=== PATIENT | female | born 1960 | race Caucasian/White ===

== ENCOUNTER → 2020-09-10 11:40 | Outpatient (CLI) | payer OTHER, SELFPAY ==
--- NOTE | ~2020-09-10 | XR_ITS ---
XR knee RT min 4V DATE: 09/10/2020 12:16 INDICATION: Abrasion. Cellulitis. TECHNIQUE: 4 views COMPARISON: None FINDINGS: No fracture or dislocation or joint effusion. Joint spaces are well preserved. No radiopaqu e intra-articular loose body or chondrocalcinosis. IMPRESSION: Negative Reviewed, dictated and finalized at location A. IMPRESSION: Negative
== END ==
PROVIDERS: PCP Nurse Practitioner Psychiatric/Mental Health
DX: L03.115 Cellulitis of right lower limb (principal); S80.211A Abrasion, right knee, initial encounter
CPT/HCPCS: 73564

== ENCOUNTER 2023-10-07 09:52 | Outpatient (CLI) | payer MEDICARE, SELFPAY ==
--- NOTE | ~2023-10-07 | XR_ITS ---
Right Shoulder Technique: AP and axillary views were obtained. Clinical History: Pain Findings: No fracture or dislocation is seen. Osseous alignment is anatomic. The glenohumeral and acr omioclavicular joint spaces are preserved. Soft tissues are unremarkable. Impression: Unremarkable right shoulder radiographs. Reviewed, dictated and finalized at [facility]. Impression: Unremarkable right shoulder radiographs.
== END 2023-10-07 09:53 ==
PROVIDERS: PCP Registered Nurse; Visit Provider Internal Medicine Medical Oncology
DX: M25.511 Pain in right shoulder (principal)
CPT/HCPCS: 73030

== ENCOUNTER 2024-02-16 14:52 | Outpatient (CLI) | payer MEDICARE, SELFPAY ==
--- NOTE | ~2024-02-16 | MR_ITS ---
EXAMINATION: MR shoulder RT wo con DATE: 02/16/2024 15:38 INDICATION: R anterior shoulder pain . TECHNIQUE: Magnetic resonance imaging (MRI) of the right shoulder was performed without intravenous c ontrast. Sequences included axial PD-weighted FS FSE, coronal oblique PD-weighted FS FSE and T2-weigh tania FS FSE, and sagittal oblique T2-weighted FS FSE and T1-weighted FSE. COMPARISON: X-ray right shoulder 10/07/2023. FINDINGS: Coracoacromial arch: Moderate lateral downsloping of the type II acromion. Acromial tip enthesopathy. No significant infer ior AC joint osteophytosis. Borderline subacromial narrowing. Rotator cuff: Full-thickness supraspinatus tear measuring 9 x 6 mm and retraction of torn supraspinous fibers to th e 12:00 position. Distal infraspinatus tendinopathy. Partial tear of the subscapularis. Teres minor i ntact. Biceps tendon and glenoid labrum: Medial subluxation of the long head of biceps tendon. Small longitudinal type tear in the proximal lo ng head of biceps tendon near its insertion. Fraying and degenerative change of the glenoid labrum wi thout focal tear. Fluid: Small glenohumeral and subacromial subdeltoid fluid collections. Bones/cartilage: Bone marrow signal is benign and homogenous. Mild degenerative changes at the AC joint and glenohumer al joint IMPRESSION: 9 x 6 mm full-thickness supraspinatus tear with retraction of the torn fibers to the 12:00 position. Partial tear of the subscapularis. Medial subluxation of the long head of biceps tendon, with a longitudinal type tear proximally near t he biceps anchor. Small subacromial subdeltoid fluid collection. Small glenohumeral joint effusion. Reviewed, dictated and finalized at location K. IMPRESSION: 9 x 6 mm full-thickness supraspinatus tear with retraction of the torn fibers t o the 12:00 position. Partial tear of the subscapularis. Medial subluxation of the long head of biceps tendon, with a longitudinal type tear proximally near the biceps anchor. Small subacromial subdeltoid fluid collection. Small glenohumeral joint effusio n.
== END 2024-02-16 14:53 | disposition home or self-care (01) ==
PROVIDERS: PCP Registered Nurse; Visit Provider Internal Medicine Medical Oncology
DX: M75.101 Unspecified rotator cuff tear or rupture of right shoulder, not specified as traumatic (principal); S41.011A Laceration without foreign body of right shoulder, initial encounter; M25.411 Effusion, right shoulder
CPT/HCPCS: 73221

== ENCOUNTER 2024-06-22 13:26 | Outpatient (CLI) | payer MEDICARE, SELFPAY ==
--- NOTE | 2024-06-22 13:30 | ECG_ITS ---
Test Date: 2024-06-22 13:53:45 Measurements Intervals [place] Rate: 64 P: 43 NE: 183 QRS: -9 QRSD: 89 T: 69 QT: 403 QTc: 417 Interpretive Statements SINUS RHYTHM LEFT VENTRICULAR HYPERTROPHY AND ST-T CHANGE [VOLTAGE CRITERIA PLUS ST/T ABNORMALITY] WARNING: DATA QUALITY MAY AFFECT INTERPRETATION No previous ECG available for comparison Electronically Signed On 06-22-2024 14:48:57 INFORMATION SYSTEMS SUPERVISOR by Gasper Gill M.D.
--- OUTSIDE RECORDS SUMMARY | 2024-06-22 13:35 | XMS_ITS | Referral Summary ---
Author Organization [facility] Address [address] [address] Care Team Providers Care Fiscal Officer Name Role Phone Unavailable Primary Care Provider Unavailabl e Source Comments [facility],non-owned Affiliates and Associated Physician Practices is amultiple site organization consisting of ambulatory clinics and hospital sitesin [place], [place], [place] and [place]. This disclosure is being madepursuant to the Care Everywhere program and may not contain all information available regarding this patient. Last updated 18.[facility] [place] Allergies Active Allergy Reactions Criticality Noted Date Comments Codeine Nausea and/or Vomiting 06/25/2011 Morphine Rash Low 04/29/2014 Hydrocodone-Acetaminophen Nausea and/or Vomiting,Other,Dizziness 06/25/2011 Weakness Medications * Be aware that medications may not be up to date on this document. Alwaysverify current medications with the patient. Medication Sig Dispensed Refills Start Date End Date Status vitamin D, ergocalciferol, (DRISDOL) 96016 UNITS capsule Take 50,000 Units by mouth every 7 days Active vitamin D, cholecalciferol, 2000 UNITS tablet Take 2,000 Units by mouth once daily Active ibuprofen (MOTRIN) 600 MG tablet Take 600 mg by mouth every 6 hours as needed for Pain Active fexofenadine (JESSICA ALLERGY) 180 MG tablet Take 180 mg by mouth once daily Active clonazePAM (KLONOPIN) 0.5 MG tablet Take 0.5 mg by mouth 3 times daily as needed for Anxiety Active aspirin (ASPIRIN) 81 MG tablet Take 1 tablet by mouth once daily 100 tablet 4 03/30/2019 Active metoprolol succinate XL 24hr (TOPROL XL) 50 MG tablet Take 2 tablets by mouth once daily 30 tablet 5 11/29/2019 Active spironolactone (ALDACTONE) 25 MG tablet Take 1 tablet by mouth once daily 30 tablet 5 03/21/2020 Active Active Problems Problem Noted Date Diagnosed Date Aortic root dilation 09/28/2019 Hx of ascending aorta replacement 05/03/2018 Overview (05/03/2018): 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 Rare PACs/couplets/triplets (< 1%). Two runs of SVT, max rate 125 bpm, max duration only 6 beats. Rare isolated PVCs (< 1%). Rare symptoms of fluttering/racing correlate w/ sinus w/o ectopy. Event monitor 06/2018 (72 hr Bard) - Baseline sinus 64 bpm w/ range 46-88 bpm. No AFib or any other ectopy. Essential hypertension 02/19/2015 Overview (03/30/2019): Stress Echo 10/2012 -- Walked 4 min on [place] TM achieving 89% predicted HR for age, baseline EF 55%, EKG/echo neg Echo 04/2017 - nl chamber sizes, EF 55%, mild LV diastolic, ascending aorta not measurable, RVSP 23 mmHg Cath 04/2018 - angiographically normal coronaries, ascending aorta aneurysm, EF 60%, no signif AI Echo 03/2019 - aortic root 4.0 cm, ascending aorta (s/p repair) not well seen, EF 60% Malignant neoplasm of breast 06/15/2011 Overview (03/31/2018): Overview: Large T2 N0 5cm neg nodes Triple neg BRCA neg Resolved Problems Problem Noted Date Diagnosed Date Resolved Date Heart disease 10/30/2012 02/19/2015 Thoracic aortic aneurysm without rupture 10/23/2012 06/23/2018 Overview (04/25/2018): 09/2012 MRA -- Maximal diameter 4.6 cm in ascending aorta. Aortic root 4.3 cm. 07/2013 MRA -- max diameter 4.8 cm in ascending aorta, thought similar in size as 2012 study (due to slight change in test gating technique) 11/2013 CT angio -- max ascending aorta diameter 4.7 cm 03/2014 MRA -- max ascending aorta diameter 4.7 cm, no dissection 09/2014 CT angio -- max ascending aorta diameter 4.7 cm 08/2015 MRA -- max ascending aorta diameter 4.5 cm 03/2017 MRA - max ascending aorta diameter 5.0 cm 09/2017 MRA - max ascending aorta diameter 5.0 x 5.0 cm 03/2018 MRA - max ascending aorta diameter 5.2 cm Cath 04/2018 - normal coronaries, thoracic aortic aneurysm noted Social History Tobacco Use Types Packs/Day Years Used Date Smoking Tobacco: Never Smokeless Tobacco: Never Alcohol Use Standard Drinks/Week Comments No 0 (1 standard drink = 0.6 oz pur e alcohol) Sex and Gender Information Value Date Recorded Sex Assigned at Not on file Gender Identity Not on file Sexual Orientation Not on file Last Filed Vital Signs Vital Sign Reading Time Taken Comments Blood Pressure 122/82 09/28/2019 12:37 PM CDT Pulse 96 09/28/2019 12:37 PM CDT Temperature 36.9 ??C (98.5 ??F) 04/24/2018 7:04 AM CS T Respiratory Rate 18 04/24/2018 9:55 AM ACCOUNTING MANAGER ASSISTANT CONTROLLER Oxygen Saturation 97% 03/30/2019 1:54 PM ACCOUNTING MANAGER ASSISTANT CONTROLLER Inhaled Oxygen Concentration - - Weight 86.2 kg (190 lb) 09/28/2019 12:37 PM CDT Height 160 cm (5' 3 ) 09/28/2019 12:37 PM CDT Body Mass Index 33.66 09/28/2019 12:37 PM CDT Plan of Treatment Not on file Procedures Procedure Name Priority Date/Time Associated Diagnosis Comments BASIC METABOLIC PANEL (CALCIUM TOTAL) Routine 07/22/2017 3:02 PM ACCOUNTING MANAGER ASSISTANT CONTROLLER Thoracic aortic aneurysm without rupture (HCC) Essential hypertension Morbid obesity (HCC) Stress at work from Last 3 Months or Most Recently Relevant to Health Maintenance Results * (ABNORMAL) BASIC METABOLIC PANEL (BMP) (07/22/2017 3:02 PM ACCOUNTING MANAGER ASSISTANT CONTROLLER) Glucose 101(H) 65 - 99 mg/dL [facility] INSURANCE BILL BUN 12 6 - 24 mg/dL [facility] INSURANCE BILL Creatinine 0.75 0.57 - 1.00 mg/dL [facility] INSURANCE BILL eGFR by MDRD 91 >59 mL/min/1.7 3 [facility] INSURANCE BILL eGFR by MDRD 105 >59 mL/min/1.7 3 [facility] INSURANCE BILL BUN/Creatinine Ratio 16 9 - 23 [facility] INSURANCE BILL Sodium 140 134 - 144 mmol/L [facility] INSURANCE BILL Potassium 4.3 3.5 - 5.2 mmol/L [facility] INSURANCE BILL Chloride 99 96 - 106 mmol/L [facility] INSURANCE BILL CO2 24 18 - 29 mmol/L [facility] INSURANCE BILL Calcium 9.7 8.7 - 10.2 mg/dL [facility] INSURANCE BILL Blood BLOOD SPECIMEN / Unknown 07/22/2017 3:02 PM ACCOUNTING MANAGER ASSISTANT CONTROLLER 07/22/2017 Narrative [facility] INSURANCE BILL - 07/23/2017 7:15 AM ACCOUNTING MANAGER ASSISTANT CONTROLLER A courtesy copy of this report has been sent to [place] [facility]. Resulting Agency Comment [facility] [address] ??[facility] [id number] Vu Castaneda MD LAB - CHEMISTRY CELSO VAUGHN [facility] INSURANCE BILL [address] [place] [address] from Last 3 Months or Most Recently Relevant to Health Maintenance
--- OUTSIDE RECORDS SUMMARY | 2024-06-22 13:35 | XMS_ITS | Clinical Summary ---
Author Organization [facility] [place] Address [address] [place] [address] Phone Care Team Providers Care Legal Compliance Officer Name Role Phone Unavailable Primary Care Provider Unavailabl e Allergies Active Allergy Reactions Criticality Noted Date Comments Cefazolin Rash Low 05/30/2020 Clindamycin Itching Low 08/15/2020 Codeine Nausea and Vomiting Low 06/25/2011 Hydrocodone-Acetaminoph en Nausea and Vomiting,Dizziness,W eakness Low 06/25/2011 Morphine Rash Low 04/29/2014 Triple Antibiotic (Colistimth) Other (See Comments) 12/12/2020 Neosporin triple ABX ointment, caused severe skin reaction Medications fexofenadine (JESSICA) 180 mg tablet Take 180 mg by mouth daily . Active cholecalciferol , Vitamin D3, 50 mcg (2,000 unit) Tablet Take 1 Tab by mouth daily. Active benzonatate (TESSALON) 100 mg capsule TAKE 1 CAPSULE(100 MG) BY MOUTH THREE TIMES DAILY NEEDED FOR COUGH 30 Capsule 05/08/2018 Active spironolactone (ALDACTONE) 25 mg tablet Take 25 mg by mouth daily. Active ibuprofen (MOTRIN) 200 mg tablet Take 200 mg by mouth every 6 hours as needed for Pain, Mild. Active aspirin (ECOTRIN EC) 81 mg Tablet, Delayed Release (E.C.) Take 81 mg by mouth daily. Active metoprolol succinate (TOPROL XL) 50 mg Extended Release 24 hour tablet Take 50 mg by mouth daily. Active escitalopram oxalate (LEXAPRO) 10 mg tablet Take 10 mg by mouth daily. 01/02/2022 Active ergocalciferol (VITAMIN D2) 50,000 unit capsule Take 1 Capsule (50,000 Units) by mouth every 7 days. 12 Capsule 3 01/13/2022 Active clotrimazole-be tamethasone (LOTRISONE) 1-0.05 % Cream Apply to affected area 2 times daily. 45 Gram 3 04/13/2023 Active buPROPion HCL (WELLBUTRIN XL) 150 mg Extended Release 24 hour tablet Take 150 mg by mouth daily. 03/07/2024 Active lidocaine (LIDODERM) 5 % Adhesive Patch, Medicated Apply 1 Patch to affected area every 24 hours. 5 Patch 4 04/10/2024 Active Active Problems Patient Care Coordination No te Formatting of this note migh t be different from the original. Primary Care: Stephani Tellez MD [place]: [place] [id number] [address] Other: Breast surgeon: Mckayla Minor Oncologist: Lorraine Shah onc: Lorraine Yanez Master Pilot - Dr. 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 Breast cancer 06/15/2011 Overview (07/14/2011): Large T2 N0 5cm neg nodes Triple neg BRCA neg Genetic testing 05/23/2011 Overview (06/25/2011): brca neg HTN (hypertension) Resolved Problems Problem Noted Date Diagnosed Date Resolved Date Lump or mass in breast 06/09/201103/31 Mitral valve disorder 2012 Encounters Date Type Department Care Team Description 06/20/2024 External Device Data STL ABSTRACTION Provider, Abstract 06/14/2024 External Device Data STL ABSTRACTION Provider, Abstract 06/05/2024 1:00 PM STONE RIGGER - 06/05/2024 11:59 PM STONE RIGGER Hospital Encounter [facility] [address] [place] [address] Lorraine Mendoza MD Showalter, Jennifer, Occupational Therapist Discharge Disposition: Home or Self Care 06/05/2024 External Device Data STL ABSTRACTION Provider, Abstract 05/22/2024 Orders Only [facility] [address] Lorraine Mendoza MD 05/21/2024 Telephone [facility] [address] Lorraine Mendoza MD Question 04/10/2024 11:00 AM STONE RIGGER Office Visit [facility] [address] Lorraine Mendoza MD Right anterior shoulder pain (Primary Dx); Morbid obesity with body mass index of 40.0-49.9 (CMS/HCC); 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, estrogen receptor negative (CMS/HCC); Elevated glucose from Last 3 Months Family History Medical History Relation Name Comments Cancer Father gallbladder Heart Attack Maternal Grandmother 40s Stroke Maternal Grandmother 40s Breast Cancer Mother Depression Mother Hypertension Mother Asthma Sister 2 Hypertension Sister 3 Ovarian Cancer Neg Hx Relation Name Status Comments Father Maternal Grandmother Mother Alive Sister 1 Alive Sister 2 Sister 3 Social History Tobacco Use Types Packs/Day Years Used Date Smoking Tobacco: Never Smokeless Tobacco: Never Tobacco Cessation:Counseling Given: Not Answered Comments:quit 30 years ago Alcohol Use Standard Drinks/Week Comments No 0 (1 standard drink = 0.6 oz pur e alcohol) Comments No Sex and Gender Information Value Date Recorded Sex Assigned at Not on file Legal Sex Female 6:07 AM STONE RIGGER Gender Identity Not on file Sexual Orientation Not on file Occupation Industry Job Start Date Job End Date Not on file Not on file Not on file Not on file Not on file Not on file Not on file Not on file Last Filed Vital Signs Vital Sign Reading Time Taken Comments Blood Pressure 124/68 04/10/2024 10:57 AM STONE RIGGER Pulse 63 04/10/2024 10:57 AM STONE RIGGER Temperature 36.5 ??C (97.7 ??F) 04/10/2024 10:[address] Respiratory Rate 16 04/10/2024 10:57 AM STONE RIGGER Oxygen Saturation 97% 04/10/2024 10:57 AM STONE RIGGER Inhaled Oxygen Concentration - - Weight 85.3 kg (188 lb) 04/10/2024 10:57 AM STONE RIGGER Height 160 cm (5' 3 ) 04/10/2024 10:57 AM STONE RIGGER Body Mass Index 33.3 04/10/2024 10:57 AM STONE RIGGER Plan of Treatment Upcoming Encounters Date Type Department Care Team (Late st Contact Info) Description 10/11/2024 11:00 AM CDT Office Visit [facility]-[address] [address] Lorraine Mendoza MD [address] [place] [address] Health Maintenance Due Date Last Done Comments DTAP/TDAP/TD VACCINES (1 - Tdap) 1981 FIT-DNA Q 3 years 11/28/2007 FIT/FOBT Q 1 year 11/28/2007 Flex Sig/CT Colonography Q 5 years 11/28/2007 BREAST CANCER SCREENING 06/09/2012 06/09/19 12, 06/08/2011, 09/28/2008 ZOSTER VACCINE (1 of 2) 2012 CERVICAL CANCER SCREENING 02/12/2018 02/12/2015, 04/2014 COLORECTAL SCREENING 05/02/2022 05/02/2012, 05/02/20 12 Colorectal Cancer Screening 05/02/2022 RSV VACCINE (60+ or ) (1 - Risk 60-74 years 1-dose series) 2022 INFLUENZA VACCINE (#1) 2023 Medicare Advant[place] ([place]) Preventative Visit/Annual Wellness Visit 05/23/2024 08/14/2021, 03/19/2016 Pre-Diabetes and Diabetes Screening 04/13/2026 04/13/2023, 04/21/2021, 11/28/2019, Additional history exists Medical Devices Implanted Type Area Lead Java [id number] Developer Device Identifier Shelf Expiration Date Model / Serial / Lot Port Pwrprt Mri 8fr [id number] [place] [facility] [place] Chest CR BARD- ACCESS SYS 01/25/2013 [id number] / / [id number] Procedures Procedure Name Priority Date/Time Associated Diagnosis Comments COMPREHENSIVE METABOLIC PANEL Stat 04/10/2024 11:44 AM STONE RIGGER 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, estrogen receptor negative (CMS/HCC) CBC WITH DIFFERENTIAL Stat 04/10/2024 11:44 AM STONE RIGGER 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, estrogen receptor negative (CMS/HCC) CANCER ANTIGEN 15-3 Routine 04/10/2024 1 1:44 AM STONE RIGGER 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, estrogen receptor negative (CMS/HCC) CEA Routine 04/10/2024 11:44 AM STONE RIGGER 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, estrogen receptor negative (CMS/HCC) LACTATE DEHYDROGENASE Routine 04/10/2024 11:44 AM STONE RIGGER 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, estrogen receptor negative (CMS/HCC) IMMUNOGLOBULINS IGG IGA IGM Routine 04/10/2024 11:44 AM STONE RIGGER 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, estrogen receptor negative (CMS/HCC) HEMOGLOBIN A1C Routine 04/13/2023 10:59 AM STONE RIGGER Elevated glucose CERV/VAG CYTO SCREEN PAP W/HPV Routine 02/12/2015 Routine gynecological examination MAMMO DIAGNOSTIC UNI LEFT W OR WO CAD Routine 06/09/2011 5:16 PM STONE RIGGER Breast mass Abnormal mammogram from Last 3 Months or Most Recently Relevant to Health Maintenance Results * CANCER ANTIGEN 15-3 (04/10/2024 11:44 AM STONE RIGGER) Pathologist [facility] CA 15-3 17 <32 U/mL [facility] Comment: This test was performed using the Siemens ([employer]) chemiluminescent method. Values obtained from different assay methods cannot be used interchangeably. CA 15-3 levels, regardless of value, should not be interpreted as absolute evidence of the presence or absence of disease. Test Performed at: [facility] [address] [place], [place] ??[phone] Lidia Hill MD Blood 04/10/2024 11:4 4 AM STONE RIGGER 04/10/2024 7:16 PM STONE RIGGER Lorraine Mendoza MD CHEMISTRY ORDERABLES Final Res ult [facility] [phone] [facility] [address] [place] [address] * (ABNORMAL) CBC WITH DIFFERENTIAL (04/10/2024 11:44 AM STONE RIGGER) Pathologist [facility] WBC 4.8 4.0 - 9.8 K/uL 04/10/2024 11:52 AM [facility] RBC 3.74(L) 3.90 - 4.90 M/uL 04/10/2024 11:52 AM [facility] HEMOGLOBIN 12.1 11.8 - 14.8 g/dL 04/10/2024 11:52 AM [facility] HEMATOCRIT 38.7 35.5 - 44.0 % 04/10/2024 11:52 AM [facility] MCV 103.5(H) 82.0 - 99.0 fL 04/10/2024 11:52 AM [facility] MCH 32.4 27.2 - 32.6 pg 04/10/2024 11:52 AM [facility] MCHC 31.3 30.0 - 37.0 g/dL 04/10/2024 11:52 AM [facility] RDW 13.8 11.5 - 14.5 % 04/10/2024 11:52 AM [facility] RDW-STDEV 51.7 37.0 - 54.0 fL 04/10/2024 11:52 AM [facility] PLATELETS 188 140 - 350 K/uL 04/10/2024 11:52 AM [facility] MPV 11.4 9.0 - 13.0 fL 04/10/2024 11:52 AM [facility] NEUTROPHILS 73(H) 45 - 70 % 04/10/2024 11:52 AM [facility] LYMPHOCYTES 15(L) 16 - 45 % 04/10/2024 11:52 AM [facility] MONOCYTES 10 3 - 13 % 04/10/2024 11:52 AM [facility] EOSINOPHILS 3 <7 % 04/10/2024 11:52 AM [facility] BASOPHILS 0 <3 % 04/10/2024 11:52 AM [facility] NEUTROPHIL ABSOLUTE 3.49 1.90 - 7.00 K/uL 04/10/2024 11:52 AM [facility] LYMPHOCYTE ABSOLUTE 0.70 0.70 - 4.50 K/uL 04/10/2024 11:52 AM [facility] MONOCYTE ABSOLUTE 0.49 0.10 - 1.30 K/uL 04/10/2024 11:52 AM [facility] EOSINOPHIL ABSOLUTE 0.12 <0.80 K/uL 04/10/2024 11:[address] [facility] BASOPHILS ABSOLUTE 0.01 <0.30 K/uL 04/10/2024 11:[address] [facility] Blood Venipuncture / Unknown 04/10/2024 11:44 AM STONE RIGGER 04/10/2024 11:44 [address] [facility] - 04/10/2024 11:52 AM STONE RIGGER Repeated and verified. Lorraine Mendoza MD HEMATOLOGY ORDERABLES Final Re sult Performing Organization Address City/[facility]/ZIP Co de Phone Number [facility] CLIA# [id number] [address] [place] [address] * (ABNORMAL) IMMUNOGLOBULINS IGG IGA IGM (04/10/2024 11:44 AM STONE RIGGER) Pathologist [facility] IGA 410(H) 70 - 320 mg/dL [facility] IGG 797 600 - 1540 mg/dL [facility] IGM 38(L) 50 - 300 mg/dL [facility] Comment: Test Performed at: [facility] [id number] [place] [address] ??[phone] Lidia Hill MD Blood 04/10/2024 11:4 4 AM STONE RIGGER 04/10/2024 7:16 PM STONE RIGGER Lorraine Mendoza MD CHEMISTRY ORDERABLES Final Res ult [facility] [phone] [facility] [address] [place] [address] * LACTATE DEHYDROGENASE (04/10/2024 11:44 AM STONE RIGGER) LD (LACTATE DEHYDROGENASE) 147 120 - 250 U/L [facility] Comment: Test Performed at: [facility] [address] [place], [place] ??[phone] Lidia Hill Blood 04/10/2024 11:4 4 AM STONE RIGGER 04/10/2024 7:16 PM STONE RIGGER Lorraine Mendoza MD CHEMISTRY ORDERABLES Final Res ult Performing Organization Address City/State/ZIP [facility] Phone Number [facility] [phone] [facility] [address] [place] [address] * CEA (04/10/2024 11:44 AM STONE RIGGER) Pathologist [facility] CEA <2.0 See Note: ng/mL [facility] Comment: Reference Range: Non-Smoker: <2.5 Smoker: ? <5.0 This test was performed using the Siemens chemiluminescent method. Values obtained from different assay methods cannot be used interchangeably. CEA levels, regardless of value, should not be interpreted as absolute evidence of the presence or absence of disease. Test Performed at: [facility] [address] [place] [address] ??[phone] Lidia Hill MD Blood 04/10/2024 11:4 4 AM STONE RIGGER 04/10/2024 7:16 PM STONE RIGGER Lorraine Mendoza MD CHEMISTRY ORDERABLES Final Res ult Performing Organization Address City/[facility] Phone Number [facility] [phone] [facility] [address] [place] [address] * (ABNORMAL) COMPREHENSIVE METABOLIC PANEL (04/10/2024 11:44 AM STONE RIGGER) Pathologist [facility] SODIUM 139 136 - 145 mmol/L 04/10/2024 12:10 PM STONE RIGGER [facility] POTASSIUM 4.2 3.5 - 5.1 mmol/L 04/10/2024 12:10 PM STONE RIGGER [facility] CHLORIDE 105 98 - 107 mmol/L 04/10/2024 12:10 PM STONE RIGGER [facility] CO2 24 22 - 29 mmol/L 04/10/2024 12:10 PM [facility] CALCIUM 9.2 8.6 - 10.2 mg/dL 04/10/2024 12:10 PM [facility] BUN 14 6 - 20 mg/dL 04/10/2024 12:10 PM [facility] CREATININE 0.88 0.50 - 0.90 mg/dL 04/10/2024 12:10 PM [facility] GLUCOSE 106(H) 74 - 99 mg/dL 04/10/2024 12:10 PM [facility] TOTAL PROTEIN 7.0 6.6 - 8.7 g/dL 04/10/2024 12:10 PM [facility] ALBUMIN 4.3 3.5 - 5.2 g/dL 04/10/2024 12:10 PM [facility] BILIRUBIN TOTAL 0.3 <1.2 mg/dL 12:10 PM [facility] ALKALINE PHOSPHATASE 66 40 - 129 U/L 04/10/2024 12:10 PM [facility] AST 16 <40 U/L 04/10/2024 12:10 PM [facility] ALT 17 4 - 41 U/L 04/10/2024 12:10 PM [facility] GFR >60 >=60 mL/min/1.7 3 sq meter 04/10/2024 12:10 PM [facility] Comment:eGFR calculated with 2020 CKD-EPI equation. Vegetarian diet, extremely high or low muscle mass, and may affect results. Cystatin C with Glomerular Filtration Rate is a suitable alternative for these patients. ANION GAP 10 8 - 16 mmol/L 04/10/2024 12:10 PM [facility] Blood Venipuncture / Unknown 04/10/2024 11:44 AM STONE RIGGER 04/10/2024 11:44 AM STONE RIGGER Lorraine Mendoza MD CHEMISTRY ORDERABLES Final Res ult Performing Organization Address [facility] Co de Phone Number [facility]ITAL[facility]# [id number] [address] [place] [address] * HEMOGLOBIN A1C (04/13/2023 10:59 AM STONE RIGGER) HEMOGLOBIN A1C 5.4 <5.7 % of total Hgb [facility] Comment: For the purpose of screening for the presence of diabetes: <5.7% ? Consistent with the absence of diabetes 5.7-6.4% ?Consistent with increased risk for diabetes ?(prediabetes) > or =6.5% ??Consistent with diabetes This assay result is consistent with a decreased risk of diabetes. Currently, no consensus exists regarding use of hemoglobin A1c for diagnosis of diabetes in children. According to [place] Diabetes Association (ADA) guidelines, hemoglobin A1c <7.0% represents optimal control in non- diabetic patients. Different metrics may apply to specific patient populations. Standards of Medical Care in Diabetes(ADA). ?? ESTIMATED AVERAGE GLUCOSE (MG/DL) 108 mg/dL [facility] ESTIMATED AVERAGE GLUCOSE (MMOL/L) 6.0 mmol/L [facility] Comment: Test Performed at: [facility] [address] [place], [place] ??[phone] Lidia Hill MD Blood 04/13/2023 10:5 9 AM STONE RIGGER 04/14/2023 5:34 AM STONE RIGGER Lorraine Mendoza MD CHEMISTRY ORDERABLES Final Res ult Performing Organization Address [facility] Co de Phone Number [facility] [phone] [facility] [address] [place] [address] * CERV/VAG CYTOPATH, THIN PREP MANAGER ARCHITECTURE AND HPV (CP) (02/12/2015) Endocervical us Pamela Jeong MD PATHOLOGY/CYTOLOGY ORD ERABLES Final Result EXTERNAL LAB * MAMMO DIGITAL DIAG UNI LEFT (06/09/2011 5:16 PM STONE RIGGER) Anatomical Region Laterality Modality Breast Left Mammography 06/09/2011 5:13 PM STONE RIGGER Impressions 06/14/2011 8:44 AM STONE RIGGER IMPRESSION: 1. Ultrasound guided cyst aspiration left breast 3:00. 2. Ultrasound-guided 10-gauge vacuum-assisted core needle biopsy left breast, 9:00, with tissue marker placement. Pathology pending. 3. Ultrasound-guided 10-gauge vacuum-assisted core needle biopsy left breast, 7:00, with tissue marker placement. Pathology pending. Narrative 06/14/2011 8:44 AM STONE RIGGER ADDENDUM: Patient is status post ultrasound guided biopsy of the left breast, 2 sites, and 06/09/2011. Pathology results are available. The results are: BREAST, LEFT, SITE #1 (9 O'CLOCK), CORE BIOPSY: ? - PAPILLARY CARCINOMA, HIGH-GRADE (SEE MICROSCOPIC). ? - DUCTAL CARCINOMA IN SITU, HIGH-GRADE. BREAST, LEFT, SITE #2 (7 O'CLOCK), CORE BIOPSY: ? - INVASIVE PAPILLARY CARCINOMA, WITH THE FOLLOWING FEATURES: ? 1. SIZE: 0.7 CM (INVASIVE COMPONENT). ? 2. MACO SCORE: 8 (HIGH-GRADE). ? 3. MARGINS: NOT APPLICABLE. ? 4. LYMPHVASCULAR INVASION: NOT IDENTIFIED. ? 5. STAGE: T1b (PROVISIONAL). This is a malignant concordant diagnosis for both sites. Surgical management is recommended. The findings and recommendations will be discussed with the patient by the office of Dr. Mckayla Minor. EXAM: ULTRASOUND-GUIDED CORE BIOPSY OF THE LEFT BREAST X2, TISSUE MARKER CLIP PLACEMENT, UNILATERAL DIGITAL MAMMOGRAM AND ULTRASOUND GUIDED CYST ASPIRATION. 06/09/11 HISTORY: Multiple left breast masses COMPARISON: Outside hospital mammograms and ultrasound from [place], [place] dated 06/08/2011. PROCEDURE AND FINDINGS: The procedures were discussed with the patient and informed consent was obtained. Preliminary ultrasound of the left breast demonstrates a 0.5 cm oval, parallel, anechoic mass at the 3:00 position of the right breast which appears to correspond with the hypoechoic lesion at the 3:00 position noted on prior outside hospital ultrasound. Additionally, between the 7:00 and 9:00 position of the breast, there are multiple irregular and oval heterogeneously hypoechoic solid masses. There are at least four discrete solid masses identified. The largest, at the 7:00 position measures 1.8 x 1.0 x 1.1 cm. At the 9:00 position, an oval solid hypoechoic mass measures 0.7 x 0.5 x 0.8 cm. PROCEDURE #1: ??ULTRASOUND-GUIDED CYST ASPIRATION LEFT BREAST, 3:00. After sterile preparation of the skin, 1% lidocaine was utilized for local anesthesia. Under ultrasound guidance, a 21 gauge needle was advanced into the 5 mm mass at the 3:00 position from a lateral approach. ??Less than 1 cc benign-appearing cyst fluid was obtained and the cyst completely decompressed. The fluid was discarded. There is no evidence of residual solid or cystic lesion post aspiration procedure. Hemostasis was achieved. A sterile bandage was applied. The patient tolerated the procedure well and there was no evidence of immediate complication. PROCEDURE #2: ??ULTRASOUND-GUIDED CORE NEEDLE BIOPSY, LEFT BREAST 9:00. After sterile preparation of the skin, 1% lidocaine was utilized for local anesthesia. ??A small skin addison was made. Under ultrasound guidance, and an inferior lateral approach, a 10 gauge vacuum assisted core biopsy needle was advanced through the mass at the 9:00 position. A total of 3 tissue cores were obtained. Under ultrasound guidance, a U shaped tissue marker clip was then placed at the biopsy site. The needle was withdrawn and compression applied to achieve hemostasis. PROCEDURE #3: ??ULTRASOUND-GUIDED CORE BIOPSY LEFT BREAST, 7:00 After sterile preparation of the skin, 1% lidocaine was utilized for local anesthesia. ??A small skin addison was made. Under ultrasound guidance, and a lateral approach, a 10 gauge vacuum assisted core biopsy needle was advanced through the mass at the 7:00 position. A total of 3 tissue cores were obtained. Under ultrasound guidance, a spiral shaped tissue marker clip was then placed at the biopsy site. The needle was withdrawn and compression applied to achieve hemostasis. A sterile bandage and an ice pack were applied to the biopsy sites. Postprocedure two-view left unilateral digital mammogram demonstrates the tissue markers at the appropriate positions. The patient tolerated the procedures well without immediate complication. The patient was given verbal as well as written postprocedural instructions prior to the release from the department. The tissue cores were submitted to surgical pathology in formalin for histologic analysis. Procedure Note Delma Lyons MD - 06/14/2011 ADDENDUM: Patient is status post ultrasound guided biopsy of the left breast, 2 sites, and 06/09/2011. Pathology results are available. The results are: BREAST, LEFT, SITE #1 (9 O'CLOCK), CORE BIOPSY: - PAPILLARY CARCINOMA, HIGH-GRADE (SEE MICROSCOPIC). - DUCTAL CARCINOMA IN SITU, HIGH-GRADE. BREAST, LEFT, SITE #2 (7 O'CLOCK), CORE BIOPSY: - INVASIVE PAPILLARY CARCINOMA, WITH THE FOLLOWING FEATURES: 1. SIZE: 0.7 CM (INVASIVE COMPONENT). 2. MACO SCORE: 8 (HIGH-GRADE). 3. MARGINS: NOT APPLICABLE. 4. LYMPHVASCULAR INVASION: NOT IDENTIFIED. 5. STAGE: T1b (PROVISIONAL). This is a malignant concordant diagnosis for both sites. Surgical management is recommended. The findings and recommendations will be discussed with the patient by the office of Dr. Mckayla Minor. EXAM: ULTRASOUND-GUIDED CORE BIOPSY OF THE LEFT BREAST X2, TISSUE MARKER CLIP PLACEMENT, UNILATERAL DIGITAL MAMMOGRAM AND ULTRASOUND GUIDED CYST ASPIRATION. 06/09/11 HISTORY: Multiple left breast masses COMPARISON: Outside hospital mammograms and ultrasound from [place], [place] dated 06/08/2011. PROCEDURE AND FINDINGS: The procedures were discussed with the patient and informed consent was obtained. Preliminary ultrasound of the left breast demonstrates a 0.5 cm oval, parallel, anechoic mass at the 3:00 position of the right breast which appears to correspond with the hypoechoic lesion at the 3:00 position noted on prior outside hospital ultrasound. Additionally, between the 7:00 and 9:00 position of the breast, there are multiple irregular and oval heterogeneously hypoechoic solid masses. There are at least four discrete solid masses identified. The largest, at the 7:00 position measures 1.8 x 1.0 x 1.1 cm. At the 9:00 position, an oval solid hypoechoic mass measures 0.7 x 0.5 x 0.8 cm. PROCEDURE #1: ULTRASOUND-GUIDED CYST ASPIRATION LEFT BREAST, 3:00. After sterile preparation of the skin, 1% lidocaine was utilized for local anesthesia. Under ultrasound guidance, a 21 gauge needle was advanced into the 5 mm mass at the 3:00 position from a lateral approach. Less than 1 cc benign-appearing cyst fluid was obtained and the cyst completely decompressed. The fluid was discarded. There is no evidence of residual solid or cystic lesion post aspiration procedure. Hemostasis was achieved. A sterile bandage was applied. The patient tolerated the procedure well and there was no evidence of immediate complication. PROCEDURE #2: ULTRASOUND-GUIDED CORE NEEDLE BIOPSY, LEFT BREAST 9:00. After sterile preparation of the skin, 1% lidocaine was utilized for local anesthesia. A small skin addison was made. Under ultrasound guidance, and an inferior lateral approach, a 10 gauge vacuum assisted core biopsy needle was advanced through the mass at the 9:00 position. A total of 3 tissue cores were obtained. Under ultrasound guidance, a U shaped tissue marker clip was then placed at the biopsy site. The needle was withdrawn and compression applied to achieve hemostasis. PROCEDURE #3: ULTRASOUND-GUIDED CORE BIOPSY LEFT BREAST, 7:00 After sterile preparation of the skin, 1% lidocaine was utilized for local anesthesia. A small skin addison was made. Under ultrasound guidance, and a lateral approach, a 10 gauge vacuum assisted core biopsy needle was advanced through the mass at the 7:00 position. A total of 3 tissue cores were obtained. Under ultrasound guidance, a spiral shaped tissue marker clip was then placed at the biopsy site. The needle was withdrawn and compression applied to achieve hemostasis. A sterile bandage and an ice pack were applied to the biopsy sites. Postprocedure two-view left unilateral digital mammogram demonstrates the tissue markers at the appropriate positions. The patient tolerated the procedures well without immediate complication. The patient was given verbal as well as written postprocedural instructions prior to the release from the department. The tissue cores were submitted to surgical pathology in formalin for histologic analysis. IMPRESSION IMPRESSION: 1. Ultrasound guided cyst aspiration left breast 3:00. 2. Ultrasound-guided 10-gauge vacuum-assisted core needle biopsy left breast, 9:00, with tissue marker placement. Pathology pending. 3. Ultrasound-guided 10-gauge vacuum-assisted core needle biopsy left breast, 7:00, with tissue marker placement. Pathology pending. us Mckayla Minor MD MAMMO ORDERABLES Final Result from Last 3 Months or Most Recently Relevant to Health Maintenance Insurance [facility] [id number] Advance Directives For more information, please contact: [phone] * Full Code (Latest Code Status on File) Date Activated Date Inactivated Comments 08/29/2014 11:38 PM 09/03/2014 1:12 AM * Full Code Date Activated Date Inactivated Comments 04/29/2014 5:14 PM 04/30/2014 6:18 PM * Full Code Date Activated Date Inactivated Comments 04/29/2014 1:58 PM 04/29/2014 5:14 PM * Full Code Date Activated Date Inactivated Comments 05/02/2012 10:45 AM 05/02/2012 3:41 PM * Full Code Date Activated Date Inactivated Comments 02/24/2012 10:57 AM 02/25/2012 12:27 PM
--- OUTSIDE RECORDS SUMMARY | 2024-06-22 13:35 | XMS_ITS ---
Author Organization [facility] [place] Address [address] [place] [address] Phone Care Team Providers Care Custodial Worker Name Role Phone Unavailable Primary Care Provider Unavailabl e Active Problems Patient Care Coordination No te Formatting of this note migh t be different from the original. Primary Care: Stephani Tellez MD Referring Provider: Stephani Tellez MD [id number] [place] [address] [address] [place] [address] Other: Breast surgeon: Mckayla Minor Oncologist: Lorraine Shah onc: Lorraine Yanez Food Production Machine Operator - Dr. Vu Castaneda Problem Noted Date [...] 05/23/2011 Overview (06/25/2011): brca neg HTN (hypertension) Current Treatment and Therapy Plans No current plan information found. Past Treatment and Therapy Plans No past plan information found. Lifetime Dose Tracking * Chemical Lifetime Dose Automatic Entry Manual Entr y doxorubicin 228.581 mg/m2 (432 mg) 228.581 mg/m2 (432 mg) 0 mg/m2 (0 mg) Effective Dose 31.9 mSv 31.9 mSv 0 mSv Total DLP 1,724 DLP 1,724 DLP 0 DLP CTDIvol Max 39 mGy 39 mGy 0 mGy CTDIvol Min 37.1 mGy 37.1 mGy 0 mGy Resolved Problems Problem Noted Date Diagnosed Date Resolved Date Lump or mass in breast 06/09/201103/31 Mitral valve disorder 2012
--- OUTSIDE RECORDS SUMMARY | 2024-06-22 13:35 | XMS_ITS | Encounter Summary ---
Author Organization [facility] Address [address] [place] [address] Care Team Providers Care Pastoral Worker Name Role Phone Cecelia Hurtado NP Primary Care Provider [phone] Tavon Camejo MD Unavailable [phone] Encounter Details Date Type Department Care Team (Late st Contact Info) Description 06/04/2020 Telephone [facility] - Imaging [address] [place] [address] Transcribed Order, Provider Social History Tobacco Use Types Packs/Day Years Used Date Smoking Tobacco: Never Smokeless Tobacco: Never Alcohol Use Standard Drinks/Week Comments Not Currently 0 (1 standard drink = 0.6 oz pur e alcohol) Comments No Sex and Gender Information Value Date Recorded Sex Assigned at Not on file Legal Sex Female 7:22 PM RADIO INTERFERENCE TROUBLE SHOOTER Gender Identity Not on file Sexual Orientation Not on file documented as of this encounter Plan of Treatment Not on file documented as of this encounter Visit Diagnoses Not on filedocumented in this encounter Care Teams Pastoral Worker Relationship Specialty Start [place] [address] [address] [id number] PCP - General Nurse Practitioner 02/16/21 [place] [address] [address] [id number] Wildlife Removal Specialist Cardiology 02/10/22 documented as of this encounter
--- OUTSIDE RECORDS SUMMARY | 2024-06-22 13:35 | XMS_ITS | Clinical Summary ---
Author Organization [facility] Address [address] [place] [address] Care Team Providers Care Fleet Administrator Name Role Phone Unavailable Primary Care Provider Unavailabl e Source Comments [facility] [employer],non-owned Affiliates and Associated Physician Practices is amultiple site organization consisting of ambulatory clinics and hospital sitesin [place], [place], [place] and [place]. This disclosure is being madepursuant to the Care Everywhere program and may not contain all information available regarding this patient. Last updated 18.[facility] [employer] Allergies Active Allergy Reactions Criticality Noted Date Comments Codeine Nausea and/or Vomiting 06/25/2011 Morphine Rash Low 04/29/2014 Hydrocodone-Acetaminophen Nausea and/or Vomiting,Other,Dizziness 06/25/2011 Weakness Medications * Be aware that medications may not be up to date on this document. Alwaysverify current medications with the patient. Medication Sig Dispensed Refills Start Date End Date Status vitamin D, ergocalciferol, (DRISDOL) 86121 UNITS capsule Take 50,000 Units by mouth [...] - normal coronaries, thoracic aortic aneurysm noted Family History Medical History Relation Name Comments Cancer Father gallbladder Stroke Maternal Grandmother in her 40s Breast Cancer after age 50 or unknown Mother Depression Mother Heart Disease Mother MVP Hypertension Mother Hypertension Sister 1 Asthma Sister 2 Heart Disease Sister 3 MVP Relation Name Status Comments Father Maternal Grandmother Mother Sister 1 Sister 2 Sister 3 Social History Tobacco [...] T Respiratory Rate 18 04/24/2018 9:55 AM HOSPITALITY RECRUITER Oxygen Saturation 97% 03/30/2019 1:54 PM HOSPITALITY RECRUITER Inhaled Oxygen Concentration - - Weight 86.2 kg (190 lb) 09/28/2019 12:37 PM CDT Height 160 cm (5' 3 ) 09/28/2019 12:37 PM CDT Body Mass Index 33.66 09/28/2019 12:37 PM CDT Plan of Treatment Health Maintenance Due Date Last Done Comments COLOGUARD (AGES 45-75) - COL ON CA SCREENING 1962 COLON MONITORING 1962 COLONOSCOPY - COLON CA SCREENING 1962 CT COLONOGRAPHY - COLON CA SCREENING 1962 Colorectal Cancer Screening 1962 FIT - COLON CA SCREENING 1962 FLEX SIG - COLON CA SCREENING 1962 LIPID TESTING 1962 MAMMOGRAM 1962 HIV SCREENING 1977 HEPATITIS C SCREENING 11/22/1980 DTAP/TDAP/TD VACCINES (1 - Tdap) 1981 PAP with HPV 1992 PNEUMOCOCCAL VACCINE 50+ (1 of 1 - PCV) 2012 ZOSTER VACCINE (1 of 2) 2012 SCREENING FOR DIABETES 07/22/2020 07/22/2017 COVID-19 VACCINE (1 - 2023-2 5 season) 2024 INFLUENZA VACCINE (#1) 2024 DEPRESSION SCREENING 05/23/2024 Respiratory Syncytial Virus (RSV) Vaccine Pt: or over 60 yrs (1 - 1-dose 75+ series) 2037 HEPATITIS B VACCINE Aged Out No longe r eligible based on patient's age to complete this topic HIB VACCINE Aged Out No longer eligi ble based on patient's age to complete this topic HPV VACCINE Aged Out No longer eligi ble based on patient's age to complete this topic MENINGOCOCCAL (Group B) VACCINE Aged Out No longer eligible based on patient's age to complete this topic MENINGOCOCCAL VACCINE Aged Out No morris christine eligible based on patient's age to complete this topic PNEUMOCOCCAL VACCINE Aged Out No long er eligible based on patient's age to complete this topic Procedures Procedure Name Priority Date/Time Associated Diagnosis Comments BASIC METABOLIC PANEL (CALCIUM TOTAL) Routine 07/22/2017 3:02 PM HOSPITALITY RECRUITER Thoracic aortic aneurysm without rupture (HCC) Essential hypertension Morbid obesity (HCC) Stress at work from Last 3 Months or Most Recently Relevant to Health Maintenance Results * (ABNORMAL) BASIC METABOLIC PANEL (BMP) (07/22/2017 3:02 PM HOSPITALITY RECRUITER) Glucose 101(H) 65 - 99 mg/dL [facility] [...] BLOOD SPECIMEN / Unknown 07/22/2017 3:02 PM HOSPITALITY RECRUITER 07/22/2017 Narrative [facility] INSURANCE BILL - 07/23/2017 7:15 AM HOSPITALITY RECRUITER A courtesy copy of this report has been sent to [place] [facility]. Resulting Agency Comment [facility] [address] [facility] ??[facility] [id number] Vu Castaneda MD LAB - CHEMISTRY CELSO VAUGHN [facility] INSURANCE BILL [address] [place] [address] from Last 3 Months or Most Recently Relevant to Health Maintenance Julisa Juarez Personal/Family Self 1960 [address] [id number]
--- OUTSIDE RECORDS SUMMARY | 2024-06-22 13:35 | XMS_ITS | Clinical Summary ---
Author Organization [facility] Address [address] [place] [address] Care Team Providers Care Cloth Tester Quality Name Role Phone Cecelia Hurtado NP Primary Care Provider [phone] Tavon Camejo MD Unavailable [phone] Allergies Active Allergy Reactions Criticality Noted Date Comments Cefazolin Flushing (skin),Redness Low 11/29/2018 Clindamycin Itching Low 08/15/2020 Codeine Nausea only Low 05/01/2018 Morphine Rash Medium 04/20/2018 Zddttqka-Yhpmdvbivw-Fanvauozh Blisters High [address] Rash Medium 12/12/2020 Hydrocodone-Acetaminophen Anxiety Low 04/20/2018 Medications ergocalciferol (VITAMIN D) 50,000 unit capsule TK 1 C PO Q 7 DAYS 1 03/09/2018 Active fexofenadine (JESSICA) 180 mg tablet Take 180 mg by mouth. Active cholecalciferol (VITAMIN D-3) 2,000 unit capsule 2,000 Units daily. Active spironolactone (ALDACTONE) 25 mg tablet Take 25 mg by mouth 10/31/2018 Active clonazePAM (KlonoPIN) 0.5 mg tablet Take 0.5 mg by mouth 2 (two) times a day as needed for anxiety Active aspirin 81 mg enteric coated tablet Take 81 mg by mouth daily Active escitalopram (LEXAPRO) 10 mg tablet Take 10 mg by mouth daily 12/12/2020 Active metoprolol XL (TOPROL-XL) 50 mg extended release tablet 02/13/2021 Acti ve cyanocobalamin, vitamin B-12, 5,000 mcg capsule Take by mouth daily Active green tea leaf extract (Green Tea) capsule Take 500 mg by mouth daily Active buPROPion XL (WELLBUTRIN XL) 150 mg 24 hr tablet Take 1 tablet (150 mg total) by mouth every morning 11/04/2022 Active Active Problems Problem Noted Date Diagnosed Date Current moderate episode of major depressive disorder without prior episode 08/22/2021 Generalized anxiety disorder 08/22/2021 Abnormality of aortic valve 12/21/2019 Assessment & Plan (06/27/2020 12:29 PM VIDEOGAME DESIGNER): On today's echocardiogram, her aortic valve appears to be tricuspid and there is no stenosis or insufficiency. Assessment & Plan (12/21/2019 4:48 PM CDT): Unclear from notes if she does have a bicuspid aortic valve. Echocardiogram of 04/09/2019 apparently did not show any particular concerns, but I am unable to see the report. Will obtain an echo with her next office visit in six months. Essential hypertension 12/21/2019 Assessment & Plan (02/16/2021 4:22 PM CDT): Blood pressure is adequately controlled on current regimen. No change was made. Assessment & Plan (06/27/2020 12:28 PM VIDEOGAME DESIGNER): Blood pressure is normal. Interestingly, she is taking only 50 mg of metoprolol succinate, which I am fine with her continuing. I had increased to 100 mg previously but her blood pressure is now normal on this dosage. Assessment & Plan (12/21/2019 4:55 PM CDT): Blood pressure is 150/100 when checked by me today. Will increase metoprolol to 100 mg daily. I stressed that it is important to keep her blood pressure very tightly controlled to protect her aorta. She has a blood pressure cuff at home and will continue to monitor her blood pressure with this adjustment. Fatigue 12/21/2019 Assessment & Plan (12/21/2019 4:54 PM CDT): She sleeps poorly, mostly because of her anterior left axillary pain. She has had physical therapy, Botox injections, and acupuncture without improvement. This pain is becoming worse with time. I suggested a physiatry evaluation to help identify exactly what is causing this pain and to see if anything can be done for treatment. While she may also have sleep apnea, it really seems that the quality of her sleep is mostly impacted by this pain. Obstructive sleep apnea 05/08/2019 Overview (05/08/2019): Classic history, Mallampati 3-4 Assessment & Plan (05/08/2019 12:32 PM VIDEOGAME DESIGNER): Classic history, Mallampati 3-4 Home sleep study ordered History of left breast cancer 05/08/2019 Overview (05/08/2019): Primary left breast 2012 Bilateral mastectomies Chemotherapy Radiation No hormonal therapy Assessment & Plan (05/08/2019 1:19 PM VIDEOGAME DESIGNER): Primary left breast 2012 Bilateral mastectomies Chemotherapy Radiation No hormonal therapy Thoracic aortic aneurysm without rupture 019 Overview (05/08/2019): Keely sternotomy ascending repair Dr. Neil 05/01/2018 Sternal dehiscence repair November 2018 with plate Assessment & Plan (05/08/2019 12:34 PM VIDEOGAME DESIGNER): Keely sternotomy ascending repair Dr. Neil 05/01/2018 Sternal dehiscence repair November 2018 with plate Other chest pain 11/03/2018 Overview (11/03/2018): Added automatically from request for surgery [id number] Assessment & Plan (02/16/2021 4:22 PM CDT): She now has two different kinds of chest pain both of which are probably musculoskeletal in certainly are not typical for myocardial ischemia. However, she does have coronary calcification on her recent CT scan. Will obtain Lexiscan (on metoprolol). Further recommendations pending results thereof. Aftercare following surgery of the circulatory s ystem 06/08/2018 Aneurysm of ascending aorta 04/20/2018 Overview (04/20/2018): Added automatically from request for surgery [id number] Assessment & Plan (12/21/2019 4:49 PM CDT): Status post replacement of the ascending aorta. She has the impression from her CT scan that she has ? another aneurysm? , apparently referring to the aortic root measurements. I reassured her that this did not represent another aneurysm but would bear watching. 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 She has follow-up scheduled with Dr. Neil. I advised her to get a CD of the CT scan for him to review. Assessment & Plan (06/27/2020 12:28 PM VIDEOGAME DESIGNER): Recent CT scan looked good. Vasovagal episode Surgical History Surgery Date Site/Laterality Comments CHOLECYSTECTOMY MASTECTOMY Bilateral OTHER SURGICAL HISTORY seroma on right AORTIC ANEURYSM REPAIR 05/01/2018 BREAST SURGERY PORTACATH PLACEMENT Right STERNUM SEPARATION REPAIR LYMPHADENECTOMY Left Medical History Medical History Date Comments Malignant neoplasm of breast (HCC) Left Aneurysm of ascending aorta (HCC) Thoracic aortic aneurysm without rupture (HCC) Essential hypertension Abnormality of aortic valve Bicuspid aortic valve Left ventricular diastolic dysfunction Vitamin D deficiency Postmastectomy lymphedema syndrome Current moderate episode of major depressive disorder without prior episode (HCC) Generalized anxiety disorder Obstructive sleep apnea Fatigue Family History Medical History Relation Name Comments Cancer Father Gallbladder Breast cancer Mother Hypertension Mother Mitral valve prolapse Mother Hypertension Sister Relation Name Status Comments Father Maternal Grandfather Maternal Grandmother Mother Alive Paternal Grandfather Paternal Grandmother Sister Social History Tobacco Use Types Packs/Day Years Used Date Smoking Tobacco: Never Smokeless Tobacco: Never Tobacco Cessation:Counseling Given: Not Answered Alcohol Use Standard Drinks/Week Comments Not Currently 0 (1 standard drink = 0.6 oz pur e alcohol) Comments No Sex and Gender Information Value Date Recorded Sex Assigned at Not on file Legal Sex Female 7:22 PM VIDEOGAME DESIGNER Gender Identity Not on file Sexual Orientation Not on file Obstetrics History Last Filed Vital Signs Vital Sign Reading Time Taken Comments Blood Pressure 120/74 06/24/2022 11:07 AM VIDEOGAME DESIGNER Pulse 74 06/24/2022 11:07 AM VIDEOGAME DESIGNER Temperature 36.3 ??C (97.4 ??F) 11/30/2018 7:54 AM CD T Respiratory Rate 18 06/24/2022 11:07 AM VIDEOGAME DESIGNER Oxygen Saturation 97% 02/19/2022 2:11 PM CDT Inhaled Oxygen Concentration - - Weight 87.1 kg (192 lb) 06/24/2022 11:07 AM VIDEOGAME DESIGNER Height 162.6 cm (5' 4 ) 06/24/2022 11:07 AM VIDEOGAME DESIGNER Body Mass Index 32.96 06/24/2022 11:07 AM VIDEOGAME DESIGNER Plan of Treatment Health Maintenance Due Date Last Done Comments Breast Cancer Screening-Mammogram 1962 Cervical Cancer Screening 1962 Colon Cancer Screening-Colonoscopy 1962 Depression Screening 1962 Hepatitis C Screening 1962 DTaP/Tdap/Td Vaccine (1 - Tdap) 1973 Hepatitis B Screening 1980 Regular Well Visit/Exam 18-64 1980 Zoster Vaccine (1 of 2) 2012 Influenza Vaccine (#1) 2024 Pneumococcal vaccine <65 Aged Out No longer eligible based on patient's age to complete this topic Medical Devices Implanted Type Area Postal Supervisor Device Identifier Shelf Expiration Date Model / Serial / Lot Vascutek Terumo [id number] Vascutek 26mm 30cm Woven Thorax Abdomen Straight Graft - [id number] - [id number] Implanted:Qty: 1 on 05/01/2018 by José Miguel Neil MD at [facility] N/A: Aorta Vasc[employer]k Terumo 12/20/2020 [id number] / [id number] / [id number] [employer]ynthes .114.01 3mm 14mm Self Drill Lock Sternal Screw Bone Titanium Nonsterile - [id number] Implanted:Qty: 10 on 11/28/2018 by José Miguel Neil MD at [facility] Synthes I 04.114 .01 / / Synthes 460.027 Plate Small H Ti 2.4mm Screw 8 Hole Lock Bone Sternal - [id number] Implanted:Qty: 1 on 11/28/2018 by José Miguel Neil MD at [facility] Synthes I 460.027 / / Insurance [facility] H[facility]PPO Address: [place] [address] [facility] CHOICE PLUS [facility] H[facility]/PPO Address: [place] [address] [facility] [facility] H[facility]/PPO Address: [place] [address] Advance Directives For more information, please contact: [phone] * Full Code (Latest Code Status on File) Date Activated Date Inactivated Comments 11/28/2018 11:07 AM 11/30/2018 5:47 PM * Full Code Date Activated Date Inactivated Comments 05/10/2018 6:42 PM 11/28/2018 5:17 AM * Full Code Date Activated Date Inactivated Comments 05/01/2018 11:33 AM 05/07/2018 7:17 PM Care Teams Cloth Tester Quality Relationship Specialty Start [place] [address] [address] [address] PCP - General Nurse Practitioner 02/16/21 [place] [address] [address] [address] Utilities Operator Cardiology 02/10/22
--- OUTSIDE RECORDS SUMMARY | 2024-06-22 13:35 | XMS_ITS | Patient Health Summary ---
Author Organization [facility] Address [address] [place] [address] Care Team Providers Care Rotary Furnace Operator Name Role Phone Unavailable Primary Care Provider Unavailabl e Note from [facility],non-owned Affiliates and Associated Physician Practices is amultiple site organization consisting of ambulatory clinics and hospital sitesin [place], [place], [place] and [place]. This disclosure is being madepursuant to the Care Everywhere program and may not contain all information available regarding this patient. Last updated 18.[facility] Allergies * Codeine(Nausea and/or Vomiting) * Morphine(Rash) -Low Criticality * Hydrocodone-Acetaminophen(Nausea and/or Vomiting,Other,Dizziness) Medications * Be aware that medications may not be up to date on this document. Alwaysverify current medications with the patient. * vitamin D, ergocalciferol, (DRISDOL) 44901 UNITS capsule Take 50,000 Units by mouth every 7 days * vitamin D, cholecalciferol, 2000 UNITS tablet Take 2,000 Units by mouth once daily * ibuprofen (MOTRIN) 600 MG tablet Take 600 mg by mouth every 6 hours as needed for Pain * fexofenadine (JESSICA ALLERGY) 180 MG tablet Take 180 mg by mouth once daily * clonazePAM (KLONOPIN) 0.5 MG tablet Take 0.5 mg by mouth 3 times daily as needed for Anxiety * aspirin (ASPIRIN) 81 MG tablet(Started 03/30/2019) Take 1 tablet by mouth once daily 4 refills remaining * metoprolol succinate XL 24hr (TOPROL XL) 50 MG tablet(Started 11/29/2019) Take 2 tablets by mouth once daily 5 refills by 11/28/2020 * spironolactone (ALDACTONE) 25 MG tablet(Started 03/21/2020) Take 1 tablet by mouth once daily 5 refills by 03/21/2021 Active Problems Problem Noted Date Diagnosed Date Aortic root dilation 09/28/2019 Hx of ascending aorta replacement 05/03/2018 Bicuspid aortic valve, possible 04/20/2018 Palpitations 10/10/2017 Essential hypertension 02/19/2015 Malignant neoplasm of breast 06/15/2011 Resolved Problems Problem Noted Date Diagnosed Date Resolved Date Heart disease 10/30/2012 02/19/2015 Thoracic aortic aneurysm without rupture 10/23/2012 06/23/2018 Social History Tobacco Use Types Packs/Day Years [...] T Respiratory Rate 18 04/24/2018 9:55 AM TRANSPORTATION MAINTENANCE SPECIALIST Oxygen Saturation 97% 03/30/2019 1:54 PM TRANSPORTATION MAINTENANCE SPECIALIST Inhaled Oxygen Concentration - - Weight 86.2 kg (190 lb) 09/28/2019 12:37 PM CDT Height 160 cm (5' 3 ) 09/28/2019 12:37 PM CDT Body Mass Index 33.66 09/28/2019 12:37 PM CDT Procedures * DERMATOPATHOLOGY(Performed 03/17/2021) * ECHOCARDIOGRAM 2D WITH DOPPLER(Performed 03/30/2019) Performed for Essential hypertension, Hx of ascending aorta replacement, Bicuspid aortic valve, possible * IA CHEST X-RAY 2 VW(Performed 08/07/2018) * HOLTER MONITOR(Performed 07/11/2018) Performed for Postoperative atrial fibrillation (HCC) * EKG 12-LEAD(Performed 06/23/2018) Performed for Postoperative atrial fibrillation (HCC) * CARDIAC CATH(Performed 04/25/2018) Performed for Thoracic aortic aneurysm without rupture (HCC), Bicuspid aortic valve, possible * MRA ANGIO CHEST W OR WO CONTRAST(Performed 04/10/2018) * HOLTER MONITOR(Performed 10/12/2017) Performed for Essential hypertension, Palpitations * MRA CHEST OUTSIDE(Performed 10/12/2017) * LAB MISC TEST(Performed 07/28/2017) * BASIC METABOLIC PANEL (CALCIUM TOTAL)(Performed 07/22/2017) Performed for Thoracic aortic aneurysm without rupture (HCC), Essential hypertension, Morbid obesity (HCC), Stress at work * ECHOCARDIOGRAM 2D WITH DOPPLER(Performed 05/13/2017) Performed for Essential hypertension, Thoracic aortic aneurysm without rupture (HCC) * MRI CHEST WWO CONTRAST(Performed 04/21/2017) * LAB MISC TEST(Performed 03/04/2017) * EKG 12-LEAD(Performed 01/04/2017) Performed for Dizzy * MRI CHEST WWO CONTRAST(Performed 09/08/2015) * MRI CHEST WWO CONTRAST(Performed 09/08/2015) * MRI ANGIO CHEST WWO CONTRAST(Performed 09/08/2015) * GROSS + MICRO EXAM(Performed 06/17/2003) Results * DERMATOPATHOLOGY (03/17/2021 12:00 AM CDT) Case Report Dermatopathology Report ? Case: [id number] ? Authorizing Provider: ??Sang Ha MD ? Collected: ? 03/17/2021 12:00 AM ? Ordering Location: ? [facility] Lab ?Received: ?03/18/2021 12:19 PM ? Pathologist: ? Dot Casarez MD ? Specimens: ?? A) - Skin, right chest ? B) - Skin, left forearm ? 4:00 PM CDT DERMATOPATHOLOGY LABORATORY Final Diagnosis Specimen A. SKIN, right chest: LENTIGINOUS MELANOCYTIC NEVUS, COMPOUND TYPE, IRRITATED (COMPOUND MELANOCYTIC NEVUS WITH ARCHITECTURAL DISORDER) (D22.5) (see microscopic description and comment) Specimen B. SKIN, left forearm: NEUROFIBROMA (D36.10) 4:00 PM T DERMATOPATHOLOGY LABORATORY Clinical History A: Atypical nevus. B: R/O BCC. 4:00 PM T DERMATOPATHOLOGY LABORATORY Gross Description Specimen A: Received is one formalin filled container labeled with the patient's name and designated right chest. The specimen consists of a shave biopsy measuring [id number]. Jar 0. Specimen B: Received is one formalin filled container labeled with the patient's name and designated left forearm. The specimen consists of a shave biopsy measuring [id number]. Jar 0. 4:00 PM T DERMATOPATHOLOGY LABORATORY Microscopic Description Specimen A. SKIN, right chest: This is a compound nevus. There is melanin pigment in the stratum corneum. There is architectural disorder characterized by a lentiginous proliferation of melanocytes between irregular nests of cells along the dermal-epidermal junction, highlighted by MART-1/Melan-A immunohistochemical staining. There is underlying fibroplasia of the papillary dermis. The intradermal component is bland appearance and matures with depth. Original and deeper sections were reviewed. (Compound Delfin's Nevus or Compound Dysplastic Nevus) COMMENT: If this specimen is sampled from a larger lesion, these findings may not be guest service representative of the entire lesion. Clinicopathologic correlation is recommended. Specimen B. SKIN, left forearm: Sections show a proliferation of spindled and S-shaped cells within the dermis. The stromal collagen is delicate and pale. 4:00 PM CDT DERMATOPATHOLOGY LABORATORY Disclaimer An external and internal positive and negative controls are appropriate for the histochemical, immunohistochemical and immunofluorescence stain(s) in this case (if any), except where stated explicitly. The performance characteristics of the stain(s) cited in this report were developed and its performance characteristic determined by the Dermatopathology Laboratory at [facility], directed by Dr. Radha Sebastian. These tests need not be, and therefore are not, approved by the [place] Food and Drug Administration. The tests are used for clinical purposes. Billing Codes Specimen Charges Stain Charges 17132 50215 1 1 86672 1 4:00 PM CDT DERMATOPATHOLOGY LABORATORY Embedded Images 4:00 PM CDT DERMATOPATHOLOGY LABORATORY Pathology/Cytology TISSUE SPECIMEN FROM SKIN / Unknown 03/17/2021 03/18/2021 12:19 PM CDT Miscellaneous samples (specimen) TISSUE SPECIMEN FROM SKIN / Unknown 03/17/2021 03/18/2021 12:19 PM CDT Sang Ha MD LAB - PATHOLOGY/CYTO LOGY ORDERABLES DERMATOPATHOLOGY LABORATORY [facility] - Department of Dermatology [facility] Medicine [address] [place] [address], [address] Floor [address] [phone] * ECHOCARDIOGRAM 2D WITH DOPPLER (03/30/2019 4:07 PM TRANSPORTATION MAINTENANCE SPECIALIST) Only the most recent of2 resultswithin the time period is included. Narrative Sun Mandujano - 03/30/2019 4:07 PM TRANSPORTATION MAINTENANCE SPECIALIST Brittni Sargent RDMS ? 03/30/2019 ??4:07 PM See scan Procedure Note Brittni Sargent RICHI - 03/30/2019 4:07 PM CST See scan Vu Castaneda MD ECHO ORDERABLES * IA CHEST X-RAY 2 VW (08/07/2018) Isabell Horton RN IA - IMAGING * HOLTER MONITOR (07/11/2018 12:23 PM TRANSPORTATION MAINTENANCE SPECIALIST) Only the most recent of2 resultswithin the time period is included. Narrative Magaly Noguera - 07/11/2018 12:23 PM TRANSPORTATION MAINTENANCE SPECIALIST Magaly Noguera ? 07/11/2018 12:23 PM See scan Vu Castaneda MD CARDIAC SERVICES ORD ERABLES * EKG 12-LEAD (06/23/2018 1:35 PM TRANSPORTATION MAINTENANCE SPECIALIST) Only the most recent of2 resultswithin the time period is included. Narrative Sun Mandujano - 06/23/2018 1:35 PM TRANSPORTATION MAINTENANCE SPECIALIST Magaly Noguera ? 06/23/2018 ??1:35 PM See scan Procedure Note Magaly Noguera - 06/23/2018 1:34 PM CST See scan Vu Castaneda MD ECG ORDERABLES * CARDIAC CATH (04/25/2018 7:07 AM TRANSPORTATION MAINTENANCE SPECIALIST) Narrative Eddy Morgan RN - 04/25/2018 7:07 AM TRANSPORTATION MAINTENANCE SPECIALIST Eddy Morgan RN ? 04/25/2018 ??7:07 AM See Scan Vu Castaneda MD CARDIAC SERVICES ORD ERABLES * MRA ANGIO CHEST W OR WO CONTRAST (04/10/2018) Anatomical Region Laterality Modality Chest Magnetic Resonan ce Provider Unknown MR ORDERABLES * MRA CHEST OUTSIDE (10/12/2017) Anatomical Region Laterality Modality Other Provider Unknown IMAGING * LAB MISC TEST (07/28/2017) Only the most recent of2 resultswithin the time period is included. Blood BLOOD SPECIMEN / Unknown Historical Provider LAB SEND OUT * (ABNORMAL) BASIC METABOLIC PANEL (BMP) (07/22/2017 3:02 PM TRANSPORTATION MAINTENANCE SPECIALIST) Glucose 101(H) 65 - 99 mg/dL [facility] [...] BLOOD SPECIMEN / Unknown 07/22/2017 3:02 PM TRANSPORTATION MAINTENANCE SPECIALIST 07/22/2017 Narrative [facility] INSURANCE BILL - 07/23/2017 7:15 AM TRANSPORTATION MAINTENANCE SPECIALIST A courtesy copy of this report has been sent to [facility]. Resulting Agency Comment [facility] [place] [id number] [facility] ??[facility] [phone] Vu Castaneda MD LAB - CHEMISTRY CELOS VAUGHN [facility] INSURANCE BILL [address] [place] [address] * MRI CHEST WITH AND WITHOUT CONTRAST (04/21/2017) Only the most recent of3 resultswithin the time period is included. Anatomical Region Laterality Modality Chest Magnetic Resonan ce Historical Provider MR ORDERABLES * MRA CHEST W/WO CONTRAST (09/08/2015) Anatomical Region Laterality Modality Chest Other Lorraine Mendoza MD MR ORDERABLES * GROSS + MICRO EXAM (06/17/2003 12:00 AM TRANSPORTATION MAINTENANCE SPECIALIST) Result CASE NUMBER [id number] Comment: ORDERING PHYSICIAN ??IVONE BARNES SPECIMEN TYPE ?Placenta Date ? 06/18/2003 Physician ?Kobe Barnes Gross Description ? The specimen is received fresh in one container labeled with the patient's name and identified as placenta . ??The specimen is a placental disc with attached succenturiate lobe, the bigger one measuring 13 x 14 x 0.8 cm., the smaller one measuring 10 x 7 x 1 cm. ?? The total weight of the specimen is 540 grams. ??Attached to the border of the bigger portion of the placenta there is organized blood clot measuring 8 x 3 x 1 cm. in greatest dimensions. ??The membranes are semi-translucent, marginally attached into the placental disc. ??The umbilical cord is marginally attached into the placental disc and measures 45 x 0.8 cm. ??It has three blood vessels. ??In addition, separately received is a fragment of detached umbilical cord that measures 7.5 x 1 cm. ??The surface has dilated, well-engorged blood vessels. ??The maternal surface is complete covered with superficially attached blood clots. ??The parenchyma is spongy, no lesions identified. ??Daycare Teacher sections are submitted as follows ?? cassette A, umbilical cord and membranes ??cassette B, portion of placenta ??cassette C, maternal portion of placenta. TK/bk Microscopic Exam ? Section of the cord shows three vessels. ??No inflammation is seen. Sections of the membranes reveal no inflammation in the amnion or the chorion. Sections of the placental disc show mature term chorionic villi. ?? Intervillous fibrin deposition is seen. ??No inflammation in the villi is noted. ??Infarct is seen. ??Focal chorangioma is identified. SR/bk Diagnosis ?I. ??Umbilical cord ?A. ??Three vessels. ? II. ?? membranes ?A. ??No pathologic diagnosis. ?III. ??Placental disc ?A. ??Succenturiate lobe, term placenta, weight 440 grams. ?B. ??Focal infarct, involving 5% of the volume. ?C. ??Chorangioma. SR/bk Attorney ? bk Pathologist ?Elizabeth Lima M.D. [place]. ?06/19/2003 1028 <2> CPT code ? 78420 MISCELLANEOUS SAMPLE S / Unknown 06/17/2003 06/18/2003 7:39 AM TRANSPORTATION MAINTENANCE SPECIALIST Historical Provider LAB - PATHOLOGY/C YTOLOGY ORDERABLES
--- OUTSIDE RECORDS SUMMARY | 2024-06-22 13:35 | XMS_ITS | Encounter Summary ---
Author Organization [facility] Address [address] [place] [address] Care Team Providers Care Business Machine Operator Name Role Phone Unavailable Primary Care Provider Unavailabl e Encounter Details Date Type Department Care Team (Late st Contact Info) Description 03/18/2021 Lab Requisition [facility] [address] [facility], [facility] [place] [address] [place] [id number] [address] Social History Tobacco Use Types Packs/Day Years [...] on file documented as of this encounter Procedures Procedure Name Priority Date/Time Associated Diagnosis Comments DERMATOPATHOLOGY Routine 03/17/2021 12:0 0 AM CDT documented in this encounter Results * DERMATOPATHOLOGY (03/17/2021 12:00 AM CDT) Case Report Dermatopathology Report ? Case: [id number] ? Authorizing Provider: ??Sang Ha MD ? Collected: ? 03/17/2021 12:00 AM ? Ordering Location: ? [facility] Lab ?Received: ?03/18/2021 12:19 PM ? Pathologist: ? Dot Casarez MD ? Specimens: ?? A) - Skin, right chest ? B) - Skin, left forearm ? 1 4:00 PM CDT DERMATOPATHOLOGY LABORATORY Final Diagnosis Specimen A. SKIN, right chest: LENTIGINOUS MELANOCYTIC NEVUS, COMPOUND TYPE, IRRITATED (COMPOUND MELANOCYTIC NEVUS WITH ARCHITECTURAL DISORDER) (D22.5) (see microscopic description and comment) Specimen B. SKIN, left forearm: NEUROFIBROMA (D36.10) 4:00 PM CDT DERMATOPATHOLOGY LABORATORY Clinical History A: Atypical nevus. B: R/O BCC. 4:00 PM [facility] DERMATOPATHOLOGY LABORATORY Gross Description Specimen A: Received is one formalin filled container labeled with the patient's name and designated right chest. The specimen consists of a shave biopsy measuring [id number]. Jar 0. Specimen B: Received is one formalin filled container labeled with the patient's name and designated left forearm. The specimen consists of a shave biopsy measuring [id number]. Jar 0. 4:00 PM [facility] DERMATOPATHOLOGY LABORATORY Microscopic Description Specimen A. SKIN, [...] larger lesion, these findings may not be claim representative of the entire lesion. Clinicopathologic correlation is recommended. Specimen B. SKIN, left forearm: Sections show a proliferation of spindled and S-shaped cells within the dermis. The stromal collagen is delicate and pale. 4:00 PM [facility] DERMATOPATHOLOGY LABORATORY Disclaimer An external and internal positive and negative controls are appropriate for the histochemical, immunohistochemical and immunofluorescence stain(s) in this case (if any), except where stated explicitly. The performance characteristics of the stain(s) cited in this report were developed and its performance characteristic determined by the Dermatopathology Laboratory at [facility], directed by Dr. Radha Sebastian. These tests need not be, and therefore are not, approved by the [place] Food and Drug Administration. The tests are used for clinical purposes. Billing Codes Specimen Charges Stain Charges 90858 14933 1 1 58352 1 4:00 PM T DERMATOPATHOLOGY LABORATORY Embedded Images 4:00 PM [facility] DERMATOPATHOLOGY LABORATORY Pathology/Cytology TISSUE SPECIMEN FROM SKIN / Unknown 03/17/2021 03/18/2021 12:19 PM T Miscellaneous samples (specimen) TISSUE SPECIMEN FROM SKIN / Unknown 03/17/2021 03/18/2021 12:19 PM CDT Sang Ha MD LAB - PATHOLOGY/CYTO LOGY ORDERABLES DERMATOPATHOLOGY LABORATORY [facility] - Department of Dermatology [facility] Medicine [address] [place] [address], [address] [phone] documented in this encounter Visit Diagnoses Not on filedocumented in this encounter
--- OUTSIDE RECORDS SUMMARY | 2024-06-22 13:35 | XMS_ITS | Clinical Summary ---
Author Organization [facility] Care Team Providers Care Drum Attendant Name Role Phone Unavailable Primary Care Provider Unavailabl e Social History Tobacco Use Types Packs/Day Years Used Date Smoking Tobacco: Never Assessed Comments Unknown Sex and Gender Information Value Date Recorded Sex Assigned at Not on file Legal Sex Female 2:36 PM CDT Gender Identity Not on file Sexual Orientation Not on file Plan of Treatment Health Maintenance Due Date Last Done Comments Hepatitis C Virus (HCV) Screening 1962 TdaP Immunization 1962 Pap Smear 11/28/1983 Cervical Cancer Screening (CCS) 1992 HPV/Cotest 1992 Colonoscopy 11/28/2007 Colorectal Cancer Screening 11/28/2007 Cologuard 2012 Immunochemical Fecal Occult Blood 2012 Mammogram 2012 Pneumococcal Immunization (5 0+ years) (1 of 1 - PCV) 2012 Zoster Immunization (1 of 2) 2012 Influenza Immunization (#1) 2024 SARS-COV-2 Immunization (2023-25 season) 2024 Respiratory Syncytial Virus (RSV) Immunization (Adult) (1 - 1-dose 75+ series) 2037 Hepatitis B Immunization Aged Out No longer eligible based on patient's age to complete this topic Meningococcal Immunization (ACWY) Aged Out No longer eligible based on patient's age to complete this topic Pneumococcal Immunization Combined Aged Out No longer eligible based on patient's age to complete this topic Rotavirus Immunization Aged Out No lo nger eligible based on patient's age to complete this topic
--- OUTSIDE RECORDS SUMMARY | 2024-06-22 13:35 | XMS_ITS | Encounter Summary ---
Author Organization [facility] Address [address] [place] [address] Care Team Providers Care Staff Consultant Name Role Phone Unavailable Primary Care Provider Unavailabl e Encounter Details Date Type Department Care Team (Late Contact Info) Description 06/20/2024 External Device Data [facility] ABSTRACTION Provider, Abstract NO ADDRESS ON FILE Social History Tobacco Use Types Packs/Day Years Used Date Smoking Tobacco: Never Smokeless Tobacco: Never Comments:quit 30 years ago Alcohol Use Standard Drinks/Week Comments No 0 (1 standard drink = 0.6 oz pur e alcohol) Comments No Sex and Gender Information Value Date Recorded Sex Assigned at Not on file Legal Sex Female 6:07 AM TEMPORARY RECEPTIONIST Gender Identity Not on file Sexual Orientation Not on file Occupation Industry Job Start Date Job End Date Not on file Not on file Not on file Not on file Not on file Not on file Not on file Not on file documented as of this encounter Plan of Treatment Upcoming Encounters Date Type Department Care Team (Late Contact Info) Description 10/11/2024 11:00 AM CDT Office Visit [facility] [address] [place] [address] Lorraine Mendoza MD [address] [place] [address] documented as of this encounter Visit Diagnoses Not on filedocumented in this encounter Additional Health Concerns Assessment Noted Time PHQ-9 Depression Total Score: 4 03/19/20 16 10:00 AM CDT documented as of this encounter
--- OUTSIDE RECORDS SUMMARY | 2024-06-22 13:35 | XMS_ITS | Referral Summary ---
Author Organization [facility] Address [address] [place] [address] Care Team Providers Care Dietary Aide Teacher Name Role Phone Cecelia Hurtado NP Primary Care Provider [phone] Tavon Camejo MD Unavailable [phone] Allergies Active Allergy Reactions Criticality Noted Date Comments Cefazolin Flushing (skin),Redness Low 11/29/2018 Clindamycin Itching Low 08/15/2020 Codeine Nausea only Low 05/01/2018 Morphine Rash Medium 04/20/2018 Xdylntzr-Aybdjseqxz-Whyiiuitn Blisters High [address] [...] 12/21/2019 Assessment & Plan (06/27/2020 12:29 PM PRECISE WINDER): On today's echocardiogram, her aortic valve appears [...] made. Assessment & Plan (06/27/2020 12:28 PM PRECISE WINDER): Blood pressure is normal. Interestingly, she is [...] 3-4 Assessment & Plan (05/08/2019 12:32 PM PRECISE WINDER): Classic history, Mallampati 3-4 Home sleep study ordered History of left breast cancer 05/08/2019 Overview (05/08/2019): Primary left breast 2012 Bilateral mastectomies Chemotherapy Radiation No hormonal therapy Assessment & Plan (05/08/2019 1:19 PM PRECISE WINDER): Primary left breast 2012 Bilateral mastectomies Chemotherapy Radiation No hormonal therapy Thoracic aortic aneurysm without rupture 019 Overview (05/08/2019): Keely sternotomy ascending repair Dr. Neil 05/01/2018 Sternal dehiscence repair November 2018 with plate Assessment & Plan (05/08/2019 12:34 PM PRECISE WINDER): Keely sternotomy ascending repair Dr. Neil 05/01/2018 Sternal dehiscence repair November 2018 with plate Other chest pain 11/03/2018 Overview (11/03/2018): Added automatically from request for surgery [id number] Assessment & Plan (02/16/2021 4:22 PM CDT): [...] (04/20/2018): Added automatically from request for surgery [id number] Assessment & Plan (12/21/2019 4:49 PM CDT): [...] review. Assessment & Plan (06/27/2020 12:28 PM PRECISE WINDER): Recent CT scan looked good. Vasovagal episode Social History Tobacco Use Types Packs/Day Years Used Date Smoking Tobacco: Never Smokeless Tobacco: Never Tobacco Cessation:Counseling Given: Not Answered Alcohol Use Standard Drinks/Week Comments Not Currently 0 (1 standard drink = 0.6 oz pur e alcohol) Comments No Sex and Gender Information Value Date Recorded Sex Assigned at Not on file Legal Sex Female 7:22 PM PRECISE WINDER Gender Identity Not on file Sexual Orientation Not on file Last Filed Vital Signs Vital Sign Reading Time Taken Comments Blood Pressure 120/74 06/24/2022 11:07 AM PRECISE WINDER Pulse 74 06/24/2022 11:07 AM PRECISE WINDER Temperature 36.3 ??C (97.4 ??F) 11/30/2018 7:54 AM CD T Respiratory Rate 18 06/24/2022 11:07 AM PRECISE WINDER Oxygen Saturation 97% 02/19/2022 2:11 PM CDT Inhaled Oxygen Concentration - - Weight 87.1 kg (192 lb) 06/24/2022 11:07 AM PRECISE WINDER Height 162.6 cm (5' 4 ) 06/24/2022 11:07 AM PRECISE WINDER Body Mass Index 32.96 06/24/2022 11:07 AM PRECISE WINDER Plan of Treatment Not on file Medical Devices Implanted Type Area Syrup Mixer Device Identifier Shelf Expiration Date Model / Serial / Lot Vascutek Terumo [id number] Vascutek 26mm 30cm Woven Thorax Abdomen Straight Graft - [id number] - [id number] Implanted:Qty: 1 on 05/01/2018 by José Miguel Neil MD at [facility] N/A: Aorta Vascutek Terumo 12/20/2020 [id number] / [id number] / [id number] Synthes [id number] 3mm 14mm Self Drill Lock Sternal Screw Bone Titanium Nonsterile - [id number] Implanted:Qty: 10 on 11/28/2018 by José Miguel Neil MD at [facility] Synthes I [id number] / / Synthes [id number] Plate Small H Ti 2.4mm Screw 8 Hole Lock Bone Sternal - [id number] Implanted:Qty: 1 on 11/28/2018 by José Miguel Neil MD at [facility] Synthes I [id number] / / Insurance [facility] CHOICE PLUS [facility] CHOICE [place] [address] [place] [address] CHOICE PLUS Advance Directives For more information, please contact: [phone] * Full Code (Latest Code Status on File) Date Activated Date Inactivated Comments 11/28/2018 11:07 AM 11/30/2018 5:47 PM * Full Code Date Activated Date Inactivated Comments 05/10/2018 6:42 PM 11/28/2018 5:17 AM * Full Code Date Activated Date Inactivated Comments 05/01/2018 11:33 AM 05/07/2018 7:17 PM Care Teams Dietary Aide Teacher Relationship Specialty Start [place] [id number] [address] [facility] [address] [place] [address] PCP - General Nurse Practitioner 02/16/21 [place] [id number] [address] Bench Repair Technician Cardiology 02/10/22
== END 2024-06-22 13:27 | disposition home or self-care (01) ==
LOC: ANHSURGERY 13:33
PROVIDERS: PCP Registered Nurse; Visit Provider Orthopaedic Surgery
DX: R94.31 Abnormal electrocardiogram [ECG] [EKG] (principal); I10 Essential (primary) hypertension
CPT/HCPCS: 36415; 93005

== ENCOUNTER → 2024-06-28 00:04 | Day surgery (SDC) | payer MEDICARE, SELFPAY ==
[2024-06-19 15:17] VITALS: BMI 32.8
--- NOTE | 2024-06-19 15:31 | PC.NURSE ---
Report to the Outpatient Waiting Room, entrance under the green pavilion located off [facility], at time _1030_ on date _[id number]_. Planned Procedure Time: _1230_.? Time changes happen often and if your time is changed the preop area will call you the afternoon before. - You and your visitor will be asked to self-screen and do not enter if you have any COVID symptoms. Please call surgeon if you need to reschedule. - A mask is optional within the hospital at this time. Patients may have clear liquids (water, carbonated beverages, clear teas, apple juice) until 3 hours prior to surgery with a maximum of 20 ounces. - No food from midnight until time of surgery and no smoking. This includes no chewing gum, candy or mints. Take only the following medications with a SIP of water on the morning of surgery: ___Escitalopram, Metoprolol, Bupropion and if needed cough tab. DO NOT STOP ANY OF YOUR OTHER PRESCRIPTION MEDICATIONS PRIOR TO SURGERY EXCEPT THE FOLLOWING Medications to discontinue per physician ___Ibuprofen and Aspirin Date to take last cfyw___[id number] Hold all vitamins and supplements for 3 days per anesthesiologist. Please no make-up, nail mongolian, hairspray, perfume, deodorant, or body powder the day of surgery.? No jewelry (including any body piercings) or valuables the day of surgery, leave them at home.? Please take a shower or bath the night before, or the morning of, surgery with an antibacterial soap.? Wear comfortable, loose fitting clothing.? - Jewelry must be removed prior to entering the operating room.? Rings and piercings that are not removed may be cut off. - The hospital will not accept responsibility for valuables.? - Please leave all valuables, including medications, at home the day of surgery. If you are going home after surgery, a licensed ross carrier driver must drive you home.? - NO public transportation without another adult if you receive anesthesia. - We recommend that an adult stay with you for 24 hours following discharge. - We also recommend that you do not drive, make important decision, drink alcoholic beverages, or take any drugs that were not prescribed by your health care provider for at least 24 hours after your discharge time. Follow any additional instructions given to you from your surgeon. Telephone instructions given to __Denise___and asked if any additional questions and then verbalized understanding. Patient advised to call surgeon office or pre surgery nurse liaison [phone] if any additional questions.
[2024-06-28] VITALS (13 sets, daily range): BP systolic 124–156; BP diastolic 47–82; PULSE 64–71; RESP 10–17; TEMP 36.2; O2SAT 92–99
--- OUTSIDE RECORDS SUMMARY | 2024-06-28 00:07 | XMS_ITS | Encounter Summary ---
Author Organization [facility] Address [address] [place] [address] Care Team Providers Care Form Worker Name Role Phone Unavailable Primary Care Provider Unavailabl e Encounter Details Date Type Department Care Team (Late Contact Info) Description 06/26/2024 External Device Data [facility] ABSTRACTION Provider, Abstract [...] on file Legal Sex Female 6:07 AM CARD GRINDER HELPER Gender Identity Not on file Sexual Orientation [...] Description 10/11/2024 11:00 AM CDT Office Visit [facility] [address] [place] [address] Lorraine Mendoza MD [address] [place] [address] documented as of this encounter Visit Diagnoses Not on filedocumented in this encounter Additional Health Concerns Assessment Noted Time PHQ-9 Depression Total Score: 4 03/19/20 16 10:00 AM CDT documented as of this encounter
--- OUTSIDE RECORDS SUMMARY | 2024-06-28 00:07 | XMS_ITS | Encounter Summary ---
Author Organization [facility] Address [address] [place] [address] Care Team Providers Care Shactor Name Role Phone Cecelia Hurtado NP Primary Care Provider [phone] Tavon Camejo MD Unavailable [phone] Encounter Details Date Type Department Care Team (Late st Contact Info) Description 06/04/2020 Telephone [facility] - Imaging [address] [place] [address] Transcribed Order, Provider Social History Tobacco Use Types Packs/Day Years Used Date Smoking Tobacco: Never Smokeless Tobacco: Never Alcohol Use Standard Drinks/Week Comments Not Currently 0 (1 standard drink = 0.6 oz pur e alcohol) Comments No Sex and Gender Information Value Date Recorded Sex Assigned at Not on file Legal Sex Female 7:22 PM OWNER/OPERATOR Gender Identity Not on file Sexual Orientation Not on file documented as of this encounter Plan of Treatment Not on file documented as of this encounter Visit Diagnoses Not on filedocumented in this encounter Care Teams Shactor Relationship Specialty Start [place] [address] [address] [phone] PCP - General Nurse Practitioner 02/16/21 [place] [address] [address] [phone] [facility] 02/10/22 documented as of this encounter
--- OUTSIDE RECORDS SUMMARY | 2024-06-28 00:07 | XMS_ITS | Clinical Summary ---
Author Organization [facility] Care Team Providers Care Warp Preparer Name Role Phone Unavailable Primary Care Provider [...]
--- OUTSIDE RECORDS SUMMARY | 2024-06-28 00:07 | XMS_ITS | Patient Health Summary ---
Author Organization [facility] Address [address] [address] Care Team Providers Care Cellular Plastics Cutter Name Role Phone Unavailable Primary Care Provider Unavailabl e Note from [facility],non-owned Affiliates and Associated Physician Practices is amultiple site organization consisting of ambulatory clinics and hospital sitesin [place], [place], [place] and [place]. This disclosure is being madepursuant to the Care Everywhere program and may not contain all information available regarding this patient. Last updated 18.[facility] Allergies * Codeine(Nausea and/or Vomiting) * Morphine(Rash) -Low Criticality * Hydrocodone-Acetaminophen(Nausea and/or Vomiting,Other,Dizziness) Medications * Be aware that medications may not be up to date on this document. Alwaysverify current medications with the patient. * vitamin D, ergocalciferol, (DRISDOL) 83049 UNITS capsule Take 50,000 Units by mouth [...] 96 09/28/2019 12:37 PM CDT Temperature 36.9 C (98.5 F) 04/24/2018 7:04 AM MANAGING PRINCIPAL Respiratory Rate 18 04/24/2018 9:55 AM MANAGING PRINCIPAL Oxygen Saturation 97% 03/30/2019 1:54 PM MANAGING PRINCIPAL Inhaled Oxygen Concentration - - Weight 86.2 kg (190 lb) 09/28/2019 12:37 PM CDT Height 160 cm (5' 3 ) 09/28/2019 12:37 PM CDT Body Mass Index 33.66 09/28/2019 12:37 PM CDT Procedures * DERMATOPATHOLOGY(Performed 03/17/2021) * ECHOCARDIOGRAM 2D WITH DOPPLER(Performed 03/30/2019) Performed for Essential hypertension, Hx of ascending aorta replacement, Bicuspid aortic valve, possible * DC CHEST X-RAY 2 VW(Performed 08/07/2018) * HOLTER [...] 12:00 AM CDT) Case Report Dermatopathology Report Case: [id number] Authorizing Provider: Sang Ha MD Collected: 03/17/2021 12:00 AM Ordering Location: [facility] DermPath Lab Received: 03/18/2021 12:19 PM Pathologist: Dot Casarez MD Specimens: A) - Skin, right chest B) - Skin, left forearm 4:00 PM CDT DERMATOPATHOLOGY LABORATORY Final Diagnosis Specimen A. SKIN, right chest: LENTIGINOUS MELANOCYTIC NEVUS, COMPOUND TYPE, IRRITATED (COMPOUND MELANOCYTIC NEVUS WITH ARCHITECTURAL DISORDER) (D22.5) (see microscopic description and comment) Specimen B. SKIN, left forearm: NEUROFIBROMA (D36.10) 4:00 PM CDT DERMATOPATHOLOGY LABORATORY Clinical History A: Atypical nevus. B: R/O BCC. 4:00 PM [facility] DERMATOPATHOLOGY LABORATORY Gross Description Specimen A: Received is one formalin filled container labeled with the patient's name and designated right chest. The specimen consists of a shave biopsy measuring [id number]. Jar 0. Specimen B: Received is one formalin filled container labeled with the patient's name and designated left forearm. The specimen consists of a shave biopsy measuring 2v0h4or. Jar 0. 4:00 PM [facility] DERMATOPATHOLOGY LABORATORY Microscopic Description Specimen A. SKIN, [...] larger lesion, these findings may not be dermatology sales representative of the entire lesion. Clinicopathologic correlation is recommended. Specimen B. SKIN, left forearm: Sections show a proliferation of spindled and S-shaped cells within the dermis. The stromal collagen is delicate and pale. 4:00 PM [facility] DERMATOPATHOLOGY LABORATORY Disclaimer An external and internal positive and negative controls are appropriate for the histochemical, immunohistochemical and immunofluorescence stain(s) in this case (if any), except where stated explicitly. The performance characteristics of the stain(s) cited in this report were developed and its performance characteristic determined by the Dermatopathology Laboratory at [facility], directed by Dr. Radha Sebastian. These tests need not be, and therefore are not, approved by the [place] Food and Drug Administration. The tests are used for clinical purposes. Billing Codes Specimen Charges Stain Charges 39334 43675 1 1 51647 1 4:00 PM T DERMATOPATHOLOGY LABORATORY Embedded Images 4:00 PM [facility] DERMATOPATHOLOGY [facility]ORATORY Pathology/Cytology TISSUE SPECIMEN FROM SKIN / Unknown 03/17/2021 03/18/2021 12:19 PM CDT Miscellaneous samples (specimen) TISSUE SPECIMEN FROM SKIN / Unknown 03/17/2021 03/18/2021 12:19 PM CDT Sang Ha MD LAB - PATHOLOGY/CYTO LOGY ORDERABLES DERMATOPATHOLOGY LABORATORY [facility] Department of Dermatology [place] [id number] [facility], [address]rd Floor [address] [phone] * ECHOCARDIOGRAM 2D WITH DOPPLER (03/30/2019 4:07 PM MANAGING PRINCIPAL) Only the most recent of2 resultswithin the time period is included. Narrative Sun Mandujano - 03/30/2019 4:07 PM MANAGING PRINCIPAL Brittni Sargent RDMS 03/30/2019 4:07 PM See scan Procedure Note Brittni Sargent RDMS - 03/30/2019 4:07 PM CST See scan Vu Castaneda MD ECHO ORDERABLES * DC CHEST X-RAY 2 VW (08/07/2018) Isabell Horton RN DC - IMAGING * HOLTER MONITOR (07/11/2018 12:23 PM MANAGING PRINCIPAL) Only the most recent of2 resultswithin the time period is included. Narrative Magaly Noguera - 07/11/2018 12:23 PM MANAGING PRINCIPAL Magaly Noguera 07/11/2018 12:23 PM See scan Vu Castaneda MD CARDIAC SERVICES ORD ERABLES * EKG 12-LEAD (06/23/2018 1:35 PM MANAGING PRINCIPAL) Only the most recent of2 resultswithin the time period is included. Narrative Sun Mandujano - 06/23/2018 1:35 PM MANAGING PRINCIPAL Magaly Noguera 06/23/2018 1:35 PM See scan Procedure Note Magaly Noguera - 06/23/2018 1:34 PM CST See scan Vu Castaneda MD ECG ORDERABLES * CARDIAC CATH (04/25/2018 7:07 AM MANAGING PRINCIPAL) Narrative Eddy Morgan, RN - 04/25/2018 7:07 AM MANAGING PRINCIPAL Eddy Morgan RN 04/25/2018 7:07 AM See Scan Vu Castaneda MD CARDIAC [...] BASIC METABOLIC PANEL (BMP) (07/22/2017 3:02 PM MANAGING PRINCIPAL) Glucose 101(H) 65 - 99 mg/dL [facility] [...] BLOOD SPECIMEN / Unknown 07/22/2017 3:02 PM MANAGING PRINCIPAL 07/22/2017 Narrative [facility] INSURANCE BILL - 07/23/2017 7:15 AM MANAGING PRINCIPAL A courtesy copy of this report has been sent to [facility]. Resulting Agency Comment [facility] [address] [facility] [id number] Vu Castaneda MD LAB - CHEMISTRY CELSO VAUGHN [facility] INSURANCE BILL [address] [place] [address] * MRI CHEST WITH AND WITHOUT CONTRAST (04/21/2017) Only the most recent of3 resultswithin the time period is included. Anatomical Region Laterality Modality Chest Magnetic Resonan ce Historical Provider MD MR ORDERABLES * MRA CHEST W/WO CONTRAST (09/08/2015) Anatomical Region Laterality Modality Chest Other Lorraine Mendoza MD MR ORDERABLES * GROSS + MICRO EXAM (06/17/2003 12:00 AM MANAGING PRINCIPAL) Result CASE NUMBER [id number] Comment: ORDERING PHYSICIAN IVONE BARNES SPECIMEN TYPE Placenta Date 06/18/2003 Physician Kobe Barnes Gross Description The specimen is received fresh in one container labeled with the patient's name and identified as placenta . The specimen is a placental disc with attached succenturiate lobe, the bigger one measuring 13 x 14 x 0.8 cm., the smaller one measuring 10 x 7 x 1 cm. The total weight of the specimen is 540 grams. Attached to the border of the bigger portion of the placenta there is organized blood clot measuring 8 x 3 x 1 cm. in greatest dimensions. The membranes are semi-translucent, marginally attached into the placental disc. The umbilical cord is marginally attached into the placental disc and measures 45 x 0.8 cm. It has three blood vessels. In addition, separately received is a fragment of detached umbilical cord that measures 7.5 x 1 cm. The surface has dilated, well-engorged blood vessels. The maternal surface is complete covered with superficially attached blood clots. The parenchyma is spongy, no lesions identified. Lead Python Developer sections are submitted as follows cassette A, umbilical cord and membranes cassette B, portion of placenta cassette C, maternal portion of placenta. TK/bk Microscopic Exam Section of the cord shows three vessels. No inflammation is seen. Sections of the membranes reveal no inflammation in the amnion or the chorion. Sections of the placental disc show mature term chorionic villi. Intervillous fibrin deposition is seen. No inflammation in the villi is noted. Infarct is seen. 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 SR/bk Diagnosis I. Umbilical cord A. Three vessels. II. membranes A. No pathologic diagnosis. III. Placental disc A. Succenturiate lobe, term placenta, weight 440 grams. B. Focal infarct, involving 5% of the volume. C. Chorangioma. SR/bk Qa Consultant bk Pathologist Elizabeth Lima M.D. [place]. 06/19/2003 1028 <2> CPT code 83933 MISCELLANEOUS SAMPLE S / Unknown 06/17/2003 06/18/2003 7:39 AM MANAGING PRINCIPAL Historical Provider LAB - PATHOLOGY/C YTOLOGY ORDERABLES
--- OUTSIDE RECORDS SUMMARY | 2024-06-28 00:07 | XMS_ITS | Clinical Summary ---
Author Organization [facility] Address [address] [place] [address] Care Team Providers Care Hand Box Folder Name Role Phone Unavailable Primary Care Provider Unavailabl e Source Comments [facility],non-owned Affiliates and Associated Physician Practices is amultiple site organization consisting of ambulatory clinics and hospital sitesin [place], [place], [place] and [place]. This disclosure is being madepursuant to the Care Everywhere program and may not contain all information available regarding this patient. Last updated 18.[facility] Allergies Active Allergy Reactions Criticality Noted Date Comments Codeine Nausea and/or Vomiting 06/25/2011 Morphine Rash Low 04/29/2014 Hydrocodone-Acetaminophen Nausea and/or Vomiting,Other,Dizziness 06/25/2011 Weakness Medications * Be aware that medications may not be up to date on this document. Alwaysverify current medications with the patient. Medication Sig Dispensed Refills Start Date End Date Status vitamin D, ergocalciferol, (DRISDOL) 12407 UNITS capsule Take 50,000 Units by mouth [...] 36.9 C (98.5 F) 04/24/2018 7:04 AM ORACLE APEX DEVELOPER Respiratory Rate 18 04/24/2018 9:55 AM ORACLE APEX DEVELOPER Oxygen Saturation 97% 03/30/2019 1:54 PM ORACLE APEX DEVELOPER Inhaled Oxygen Concentration - - Weight 86.2 [...] SCREENING FOR DIABETES 07/22/2020 07/22/2017 COVID-19 VACCINE ( - 2023-2 5 season) 2024 INFLUENZA VACCINE [...] PANEL (CALCIUM TOTAL) Routine 07/22/2017 3:02 PM ORACLE APEX DEVELOPER Thoracic aortic aneurysm without rupture (HCC) Essential hypertension Morbid obesity (HCC) Stress at work from Last 3 Months or Most Recently Relevant to Health Maintenance Results * (ABNORMAL) BASIC METABOLIC PANEL (BMP) (07/22/2017 3:02 PM ORACLE APEX DEVELOPER) Glucose 101(H) 65 - 99 mg/dL [facility] [...] BLOOD SPECIMEN / Unknown 07/22/2017 3:02 PM ORACLE APEX DEVELOPER 07/22/2017 Narrative [facility] INSURANCE BILL - 07/23/2017 7:15 AM ORACLE APEX DEVELOPER A courtesy copy of this report has been sent to [place] [facility]. Resulting Agency Comment [facility] [address] [facility] [id number] Vu Castaneda MD LAB - CHEMISTRY CELSO VAUGHN [facility] INSURANCE BILL [address] [place] [address] from Last 3 Months or Most Recently Relevant to Health Maintenance
--- OUTSIDE RECORDS SUMMARY | 2024-06-28 00:07 | XMS_ITS | Encounter Summary ---
Author Organization [facility] Address [address] [place] [address] Care Team Providers Care Adventure Education Teacher Name Role Phone Unavailable Primary Care Provider Unavailabl e Encounter Details Date Type Department Care Team (Late st Contact Info) Description 03/18/2021 Lab Requisition [facility] [address] [facility], [facility] [place] [address] [place] [address] [address] Social History Tobacco Use Types [...] AM CDT) Case Report Dermatopathology Report Case: [id number] Authorizing Provider: Sang Ha MD Collected: 03/17/2021 12:00 AM Ordering Location: [facility] DermPath Lab Received: 03/18/2021 12:19 PM Pathologist: Dot Casarez MD Specimens: A) - Skin, right chest B) - Skin, left forearm 4:00 PM [facility] DERMATOP[facility]OLOGY LABORATORY Final Diagnosis Specimen A. SKIN, right chest: LENTIGINOUS MELANOCYTIC NEVUS, COMPOUND TYPE, IRRITATED (COMPOUND MELANOCYTIC NEVUS WITH ARCHITECTURAL DISORDER) (D22.5) (see microscopic description and comment) Specimen B. SKIN, left forearm: NEUROFIBROMA (D36.10) 4:00 PM [facility] DERMATOPATHOLOGY LABORATORY Clinical History A: Atypical nevus. B: R/O BCC. 4:00 PM T DERMATOPATHOLOGY LABORATORY Gross Description Specimen A: Received is one formalin filled container labeled with the patient's name and designated right chest. The specimen consists of a shave biopsy measuring 3u1j8st. Jar 0. Specimen B: Received is one formalin filled container labeled with the patient's name and designated left forearm. The specimen consists of a shave biopsy measuring 0p4w1wp. Jar 0. 4:00 PM [facility] DERMATOPATHOLOGY LABORATORY Microscopic Description Specimen A. SKIN, [...] larger lesion, these findings may not be telesales representative of the entire lesion. Clinicopathologic correlation is recommended. Specimen B. SKIN, left forearm: Sections show a proliferation of spindled and S-shaped cells within the dermis. The stromal collagen is delicate and pale. 4:00 PM T DERMATOPATHOLOGY LABORATORY Disclaimer An external and internal positive and negative controls are appropriate for the histochemical, immunohistochemical and immunofluorescence stain(s) in this case (if any), except where stated explicitly. The performance characteristics of the stain(s) cited in this report were developed and its performance characteristic determined by the Dermatopathology Laboratory at [facility], directed by Dr. Radha Sebastian. These tests need not be, and therefore are not, approved by the [place] Food and Drug Administration. The tests are used for clinical purposes. Billing Codes Specimen Charges Stain Charges 21418 76247 1 1 14511 1 1 4:00 PM CDT DERMATOPATHOLOGY LABORATORY Embedded Images 4:00 PM CDT DERMATOPATHOLOGY LABORATORY Pathology/Cytology TISSUE SPECIMEN FROM SKIN / Unknown 03/17/2021 03/18/2021 12:19 PM CDT Miscellaneous samples (specimen) TISSUE SPECIMEN FROM SKIN / Unknown 03/17/2021 03/18/2021 12:19 PM CDT Sang Ha MD LAB - PATHOLOGY/CYTO LOGY ORDERABLES DERMATOPATHOLOGY LABORATORY [facility] - Department of Dermatology [address], [address] [phone] documented in this encounter Visit Diagnoses Not on filedocumented in this encounter
--- OUTSIDE RECORDS SUMMARY | 2024-06-28 00:07 | XMS_ITS | Clinical Summary ---
Author Organization [facility] Address [address] [place] [address] Care Team Providers Care Nursery Attendant Name Role Phone Whitney Rees APRN Primary Care Provider [phone] Livan Gao MD Unavailable [phone] Allergies Active Allergy Reactions Criticality Noted Date Comments Cefazolin Rash Low 11/29/2018 Facial redness and flushing Clindamycin Itching Low 08/15/2020 Codeine Nausea and Vomiting Low 06/25/2011 Hydrocodone-Acetaminop hen Nausea and Vomiting,Anxiety,Dizz iness,Other (see comment) Low 06/25/2011 Weakness Morphine Rash Medium 04/29/2014 Rash at the IV site after Morphine given slowly Gde-Tqfxy-Demq-Lidocai ne Rash Medium 12/12/2020 Neosporin triple ABX ointment, caused severe skin reaction Neomycin-Bacitracin Zn-Polymyx Contact Dermatitis High 02/16/2021 Medications Cyanocobalamin (B-12) 2000 MCG Tab Active Green Tea 150 MG Cap Active ASPIRIN LOW DOSE 81 MG tabletIndication s:Aneurysm of ascending aorta without rupture (CMS/HCC) take 1 tablet every day 90 tablet 3 3 Active vitamin D2, ergocalciferol, (DRISDOL) 1.25 mg capsuleIndicatio ns:Vitamin D deficiency TAKE 1 CAPSULE EVERY 7 DAYS 12 capsule 3 4 Active lidocaine (HM LIDOCAINE PATCH) 4 % patch Place 1 patch onto the skin daily. Remove & Discard patch within 12 hours or as directed by Active diclofenac EC (VOLTAREN) 75 MG tabletIndication s:Dysfunction of right rotator cuff Take 1 tablet (75 mg total) by mouth 2 (two) times daily. 60 tablet 1 5 Active metoprolol succinate ER (TOPROL-XL) 50 MG 24 hr tabletIndication s:Essential hypertension Take 1 tablet (50 mg total) by mouth daily. 90 tablet 3 5 Active spironolactone (ALDACTONE) 25 MG tabletIndication s:Essential hypertension Take 1 tablet (25 mg total) by mouth daily. 90 tablet 3 5 Active fexofenadine (JESSICA) 180 MG tabletIndication s:Seasonal allergic rhinitis, unspecified trigger Take 1 tablet (180 mg total) by mouth daily. 90 tablet 1 5 Active buPROPion XL (WELLBUTRIN XL) 150 MG 24 hr tabletIndication s:Current moderate episode of major depressive disorder without prior episode (CMS/HCC HHS/HCC) Take 1 tablet (150 mg total) by mouth daily. 90 tablet 5 Active rOPINIRole (REQUIP) 0.25 MG tabletIndication s:Restless leg Take 1 tablet (0.25 mg total) by mouth nightly at bedtime. 90 tablet 2 5 Active Cholecalciferol (VITAMIN D3) 50 MCG (1999 UT) CapIndications:V itamin D deficiency Take 2,000 Units by mouth daily. 90 capsule 1 5 Active escitalopram (LEXAPRO) 20 MG tabletIndication s:Current moderate episode of major depressive disorder without prior episode (CMS/HCC HHS/HCC) Take 1 tablet (20 mg total) by mouth daily. 90 tablet 2 5 Active benzonatate (TESSALON) 100 MG capsuleIndicatio ns:Chronic cough Take 1 capsule (100 mg total) by mouth 3 (three) times daily as needed. 30 capsule 2 5 Active benzonatate (TESSALON) 100 MG capsuleIndicatio ns:Chronic cough Take 1 capsule (100 mg total) by mouth 3 (three) times daily as needed. 30 capsule 3 5 06/12/19 25 Discontinu ed(Reorder ) Active Problems Problem Noted Date Diagnosed Date Vasovagal episode 06/16/2023 Chronic chest pain 09/05/2022 Ophthalmoplegic migraine, not intractable 2021 Current moderate episode of major depressive disorder without prior episode ([facility]) 08/22/2021 Generalized anxiety disorder 08/22/2021 Class 2 obesity with alveola r hypoventilation, serious comorbidity, and body mass index (BMI) of 35.0 to 35.9 in adult ([facility]) 08/22/2021 Fatigue 12/21/2019 Overview (05/05/2021): Last Assessment & Plan: She sleeps poorly, mostly because of her [...] sleep is mostly impacted by this pain. History of left breast cancer 05/08/2019 Overview (05/05/2021): Primary left breast 2012 Bilateral mastectomies Chemotherapy Radiation No hormonal therapy Last Assessment & Plan: Primary left breast 2012 Bilateral mastectomies Chemotherapy Radiation No hormonal therapy Primary left breast 2012 Bilateral mastectomies Chemotherapy Radiation No hormonal therapy Last Assessment & Plan: Primary left breast 2012 Bilateral mastectomies Chemotherapy Radiation No hormonal therapy Chronic chest wall pain 11/03/2018 Overview (05/05/2021): Added automatically from request for surgery [id number] Last Assessment & Plan: She now has two different kinds of chest pain both of which are probably musculoskeletal in certainly are not typical for myocardial ischemia. However, she does have coronary calcification on her recent CT scan. Will obtain Lexiscan (on metoprolol). Further recommendations pending results thereof. Hx of ascending aorta replacement 05/03/2018 Overview (05/05/2021): Overview: Ascending aorta replacement for aneurysm 04/2018 - #28 mm Gelweave graft replacement of ascending aorta Last Assessment & Plan: Recent CT scan is reassuring. She has follow-up scheduled with Dr. Neil. I advised her to get a CD of the CT scan for him to review. Ascending aorta replacement for aneurysm 04/2018 - #28 mm Gelweave graft replacement of ascending aorta Palpitations 10/10/2017 Overview (05/05/2021): Event monitor 09/2017 (one week Zio) - Baseline sinus 76 bpm (range 51-127). Rare PACs/couplets/triplets (< 1%). Two runs of SVT, max rate 125 bpm, max duration only 6 beats. Rare isolated PVCs (< 1%). Rare symptoms of fluttering/racing correlate w/ sinus w/o ectopy. Event monitor 06/2018 (72 hr Bardy) - Baseline sinus 64 bpm w/ range 46-88 bpm. No AFib or any other ectopy. Essential hypertension 02/19/2015 Overview (05/05/2021): Overview: Stress Echo 10/2012 -- Walked 4 min on Jonas TM achieving 89% predicted HR for age, baseline EF 55%, EKG/echo neg Echo 04/2017 - nl chamber sizes, EF 55%, mild LV diastolic, ascending aorta not measurable, RVSP 23 mmHg Cath 04/2018 - angiographically normal coronaries, ascending aorta aneurysm, EF 60%, no signif AI Last Assessment & Plan: Blood pressure is adequately controlled on current regimen. No change was made. Left ventricular diastolic dysfunction 3 Aneurysm of ascending aorta without rupture 07/2012 Overview (05/05/2021): Keely sternotomy ascending repair Dr. Neil 05/01/2018 Sternal dehiscence repair November 2018 with plate Last Assessment & Plan: Keely sternotomy ascending repair Dr. Neil 05/01/2018 Sternal dehiscence repair November 2018 with plate Keely sternotomy ascending repair Dr. Neil 05/01/2018 Sternal dehiscence repair November 2018 with plate Last Assessment & Plan: Keely sternotomy ascending repair Dr. Neil 05/01/2018 Sternal dehiscence repair November 2018 with plate Added automatically from request for surgery [id number] Last Assessment & Plan: Status post replacement of the ascending aorta. She has the impression from her CT scan that she has a nother aneurysm , apparently referring to the aortic root measurements. I reassured her that this did not represent another aneurysm but would bear watching. 09/2012 MRA -- Maximal diameter 4.6 cm in ascending aorta. Aortic root 4.3 cm. 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, estrogen receptor negative ([facility]) 06/15/2011 Overview (02/17/2022): Large T2 N0 5cm neg nodes Triple neg BRCA neg Large T2 N0 5cm neg nodes Triple neg BRCA neg Overview: Large T2 N0 5cm neg nodes Triple neg BRCA neg Resolved Problems Problem Noted Date Diagnosed Date Resolved Date Abnormality of aortic valve ([facility]) 12/21/2019 08/22/2021 Overview (05/05/2021): Last Assessment & Plan: On today's echocardiogram, her aortic valve appears to be tricuspid and there is no stenosis or insufficiency. Obstructive sleep apnea 05/08/201911/20 Overview (05/05/2021): Classic history, Mallampati 3-4 Last Assessment & Plan: Classic history, Mallampati 3-4 Home sleep study ordered Classic history, Mallampati 3-4 Last Assessment & Plan: Classic history, Mallampati 3-4 Home sleep study ordered Genetic testing 05/23/2011 05/05/2021 Overview (05/05/2021): brca neg Encounters Date Type Department Care Team Description 06/08/2024 Telephone [facility] Family & Internal Medicine [facility] [address] [place] [address] Whitney Rees APRN Medication Problem 05/29/2024 3:20 PM CONCRETE MIXER OPERATOR HELPER Office Visit [facility] Family & Internal Medicine [facility] [id number] [place] [phone] Whitney Rees APRN Follow Up (Medication management ) 05/29/2024 Travel 05/04/2024 Travel from Last 3 Months Immunizations Name Administration Dates Next Due COVID-19 Vaccine (Generic) 04/30/2021(Deferred: Patient Refused) Influenza (Generic) 04/30/2021(Deferred: Patient Refused) Family History Medical History Relation Comments Cancer Father gall bladder can cer Stroke Maternal Grandmother Vision loss Maternal Grandmother Cancer Mother breast cancer Depression Mother Additional membe rs Heart Mother Mitral valve pro lapse Heart Disease Mother Hypertension Mother Asthma Sister Relation Status Comments Father Maternal Grandmother Mother Alive Sister Social History Tobacco Use Types Packs/Day Years Used Date Smoking Tobacco: Never Smokeless Tobacco: Never Tobacco Cessation:Counseling Given: No Comments:non smoker Alcohol Use Standard Drinks/Week Comments No 0 (1 standard drink = 0.6 oz pur e alcohol) AUDIT-C Answer Date Recorded Frequency of Alcohol Consumption Never 08/07/2018 Average Number of Drinks Not on file 019 Frequency of Binge Drinking Not on file 07/21 PHQ-2 Answer Date Recorded Patient Health Questionnaire-2 Score 6 05/29/2024 Education Answer Date Recorded What is the highest level of school you have completed or the highest degree you have received? Some college, no degree 08/07/2018 Comments No Sex and Gender Information Value Date Recorded Sex Assigned at Female 08/07/2018 1:32 PM CDT Legal Sex Female 11:04 PM CDT Gender Identity Female 08/07/2018 1:32 PM CDT Sexual Orientation Straight 08/07/2018 1: 32 PM CDT Last Filed Vital Signs Vital Sign Reading Time Taken Comments Blood Pressure 141/83 05/29/2024 3:26 PM CONCRETE MIXER OPERATOR HELPER Pulse 64 05/29/2024 3:26 PM CONCRETE MIXER OPERATOR HELPER Temperature 36.5 C (97.7 F) 05/29/2024 3:26 PM CONCRETE MIXER OPERATOR HELPER Respiratory Rate 16 05/29/2024 3:26 PM CONCRETE MIXER OPERATOR HELPER Oxygen Saturation 97% 05/29/2024 3:26 PM CONCRETE MIXER OPERATOR HELPER Inhaled Oxygen Concentration - - Weight 86.6 kg (191 lb) 05/29/2024 3:26 PM CONCRETE MIXER OPERATOR HELPER Height 160 cm (5' 3 ) 05/29/2024 3:26 PM CONCRETE MIXER OPERATOR HELPER Body Mass Index 33.83 05/29/2024 3:26 PM CONCRETE MIXER OPERATOR HELPER Plan of Treatment Health Maintenance Due Date Last Done Comments Cervical Cancer Screening Pa p Smear (Age 30 to 64) Every 3 Years 1962 Colorectal Cancer Screening Colonoscopy (10 Years) 1962 Hepatitis C 1980 DTaP, Tdap and Td Vaccines ( 1 - Tdap) 1981 Cervical Cancer Screening Pa p with HPV Testing (Age 30 to 64) Every 5 Years 1992 Cervical Cancer Screening wi th HPV 1992 Zoster Vaccines (1 of 2) 2012 Annual Physical 08/14/2022 08/14/2021, 05/26/2020 COVID-19 Vaccine ( - 2023-2 5 season) 2024 Influenza Adult (#1) 2024 PHQ-2 (Phys[facility] [place]) 05/29/2025 05/29/2024 RSV Immunization or 60+ Years (1 - 1-dose 75+ series) 2037 PHQ-2 (Phys[facility] [place]) Completed 05/29/2024 Meningococcal B Vaccine Aged Out No l onger eligible based on patient's age to complete this topic Meningococcal Vaccine Aged Out No morris christine eligible based on patient's age to complete this topic Pneumococcal Vaccine: Pediatrics (0 to 5 Years) and At-Risk Patients (6 to 64 Years) Aged Out No longer eligible b ased on patient's age to complete this topic RSV Immunizations Under 20 Months Aged Out No longer eligible b ased on patient's age to complete this topic Insurance Care Teams Nursery Attendant Relationship Specialty Start Date End Date Whitney Rees APRN [id number] [address] PCP - General NURSE PRACTITIONER 06/14/23 Livan Gao MD [address] [address] ORTHOPAEDIC SURGERY 05/29/24
--- OUTSIDE RECORDS SUMMARY | 2024-06-28 00:07 | XMS_ITS | Referral Summary ---
Author Organization [facility] Address [address] [facility] [place] [address] Care Team Providers Care E Learning Coordinator Name Role Phone Unavailable Primary Care Provider Unavailabl e Source Comments [facility],non-owned Affiliates and Associated Physician Practices is amultiple site organization consisting of ambulatory clinics and hospital sitesin [place], [place], [place] and [place]. This disclosure is being madepursuant to the Care Everywhere program and may not contain all information available regarding this patient. Last updated 18.[facility] DocDoc Allergies Active Allergy Reactions Criticality Noted Date Comments Codeine Nausea and/or Vomiting 06/25/2011 Morphine Rash Low 04/29/2014 Hydrocodone-Acetaminophen Nausea and/or Vomiting,Other,Dizziness 06/25/2011 Weakness Medications * Be aware that medications may not be up to date on this document. Alwaysverify current medications with the patient. Medication Sig Dispensed Refills Start Date End Date Status vitamin D, ergocalciferol, (DRISDOL) 05367 UNITS capsule Take 50,000 Units by mouth [...] 36.9 C (98.5 F) 04/24/2018 7:04 AM DRYING RACK CHANGER Respiratory Rate 18 04/24/2018 9:55 AM DRYING RACK CHANGER Oxygen Saturation 97% 03/30/2019 1:54 PM DRYING RACK CHANGER Inhaled Oxygen Concentration - - Weight 86.2 kg (190 lb) 09/28/2019 12:37 PM CDT Height 160 cm (5' 3 ) 09/28/2019 12:37 PM CDT Body Mass Index 33.66 09/28/2019 12:37 PM CDT Plan of Treatment Not on file Procedures Procedure Name Priority Date/Time Associated Diagnosis Comments BASIC METABOLIC PANEL (CALCIUM TOTAL) Routine 07/22/2017 3:02 PM DRYING RACK CHANGER Thoracic aortic aneurysm without rupture (HCC) Essential hypertension Morbid obesity (HCC) Stress at work from Last 3 Months or Most Recently Relevant to Health Maintenance Results * (ABNORMAL) BASIC METABOLIC PANEL (BMP) (07/22/2017 3:02 PM DRYING RACK CHANGER) Glucose 101(H) 65 - 99 mg/dL [facility] [...] BLOOD SPECIMEN / Unknown 07/22/2017 3:02 PM DRYING RACK CHANGER 07/22/2017 Narrative [facility] INSURANCE BILL - 07/23/2017 7:15 AM DRYING RACK CHANGER A courtesy copy of this report has been sent to [facility] Resulting Agency Comment [facility] [address] [facility] [id number] Vu Castaneda MD LAB - CHEMISTRY CELSO VAUGHN [facility] INSURANCE BILL [address] [place] [address] from Last 3 Months or Most Recently Relevant to Health Maintenance
--- OUTSIDE RECORDS SUMMARY | 2024-06-28 00:07 | XMS_ITS | Encounter Summary ---
Author Organization [facility] Address [address] [place] [address] Care Team Providers Care Cell Tester Name Role Phone Whitney Rees APRN Primary Care Provider [phone]- [phone] Livan Gao MD Unavailable [phone] Encounter Details Date Type Department Care Team (Late st Contact Info) Description 03/05/2024 [employer] Message [facility] [facility] Family & Internal Medicine [address] [address] [place], [facility] Provider Due for appointment Social History Tobacco Use Types Packs/Day Years Used Date Smoking Tobacco: Never Smokeless Tobacco: Never Comments:non smoker Alcohol Use Standard Drinks/Week Comments No 0 (1 standard drink = 0.6 oz pur e alcohol) AUDIT-C Answer Date Recorded Frequency of Alcohol Consumption Never 08/07/2018 Average Number of Drinks Not on file 019 Frequency of Binge Drinking Not on file 07/21 PHQ-2 Answer Date Recorded Patient Health Questionnaire-2 Score 3 06/16/2023 Education Answer Date Recorded What is the [...] Orientation Straight 08/07/2018 1: 32 PM CDT documented as of this encounter Plan of Treatment Not on file documented as of this encounter Visit Diagnoses Not on filedocumented in this encounter Additional Health Concerns Assessment Noted Time PHQ-9 Depression Total Score: 14 06/16/ 024 3:47 PM WHISKEY PROOF READER documented as of this encounter Care Teams Cell Tester Relationship Specialty Start Date End Date Whitney Rees APRN [address] [address] PCP - General NURSE PRACTITIONER 06/14/23 Livan Gao MD [address] [facility] [address] [place] [address] ORTHOPAEDIC SURGERY 05/29/24 documented as of this encounter
--- OUTSIDE RECORDS SUMMARY | 2024-06-28 00:08 | XMS_ITS | Clinical Summary ---
Author Organization [facility] Address [address] [place] [address] Care Team Providers Care Diesel Motor Mechanic Name Role Phone Cecelia Hurtado NP Primary Care Provider [phone] Tavon Camejo MD Unavailable [phone] Allergies Active Allergy Reactions Criticality Noted Date Comments Cefazolin Flushing (skin),Redness Low 11/29/2018 Clindamycin Itching Low 08/15/2020 Codeine Nausea only Low 05/01/2018 Morphine Rash Medium 04/20/2018 Qubgyzuo-Clpxxkfjua-Qyiqqevsd Blisters High [address] [...] 12/21/2019 Assessment & Plan (06/27/2020 12:29 PM IRRIGATION FOREMAN): On today's echocardiogram, her aortic valve appears [...] made. Assessment & Plan (06/27/2020 12:28 PM IRRIGATION FOREMAN): Blood pressure is normal. Interestingly, she is [...] 3-4 Assessment & Plan (05/08/2019 12:32 PM IRRIGATION FOREMAN): Classic history, Mallampati 3-4 Home sleep study ordered History of left breast cancer 05/08/2019 Overview (05/08/2019): Primary left breast 2012 Bilateral mastectomies Chemotherapy Radiation No hormonal therapy Assessment & Plan (05/08/2019 1:19 PM IRRIGATION FOREMAN): Primary left breast 2012 Bilateral mastectomies Chemotherapy Radiation No hormonal therapy Thoracic aortic aneurysm without rupture 019 Overview (05/08/2019): Keely sternotomy ascending repair Dr. Neil 05/01/2018 Sternal dehiscence repair November 2018 with plate Assessment & Plan (05/08/2019 12:34 PM IRRIGATION FOREMAN): Keely sternotomy ascending repair Dr. Neil 05/01/2018 Sternal dehiscence repair November 2018 with plate Other chest pain 11/03/2018 Overview (11/03/2018): Added automatically from request for surgery [id number] Assessment & Plan (02/16/2021 4:22 PM CDT): [...] (04/20/2018): Added automatically from request for surgery [id number] Assessment & Plan (12/21/2019 4:49 PM CDT): [...] review. Assessment & Plan (06/27/2020 12:28 PM IRRIGATION FOREMAN): Recent CT scan looked good. Vasovagal episode [...] on file Legal Sex Female 7:22 PM IRRIGATION FOREMAN Gender Identity Not on file Sexual Orientation Not on file Obstetrics History Last Filed Vital Signs Vital Sign Reading Time Taken Comments Blood Pressure 120/74 06/24/2022 11:07 AM IRRIGATION FOREMAN Pulse 74 06/24/2022 11:07 AM IRRIGATION FOREMAN Temperature 36.3 C (97.4 F) 11/30/2018 7:54 AM CDT Respiratory Rate 18 06/24/2022 11:07 AM IRRIGATION FOREMAN Oxygen Saturation 97% 02/19/2022 2:11 PM CDT Inhaled Oxygen Concentration - - Weight 87.1 kg (192 lb) 06/24/2022 11:07 AM IRRIGATION FOREMAN Height 162.6 cm (5' 4 ) 06/24/2022 11:07 AM IRRIGATION FOREMAN Body Mass Index 32.96 06/24/2022 11:07 AM IRRIGATION FOREMAN Plan of Treatment Health Maintenance Due Date [...] this topic Medical Devices Implanted Type Area Digital Print Operator Device Identifier Shelf Expiration Date Model / Serial / Lot Vascutek Terumo [id number] Vascutek 26mm 30cm Woven Thorax Abdomen Straight Graft - [id number] - [id number] Implanted:Qty: 1 on 05/01/2018 by José Miguel Neil MD at [facility] N/A: Aorta Vascutek Terumo 12/20/2020 [id number] / [id number] / [id number] Synthes [id number] 3mm 14mm Self Drill Lock Sternal Screw Bone Titanium Nonsterile - [id number] Implanted:Qty: 10 on 11/28/2018 by José Miguel Neil MD at [facility] Synthes I .[id number] .[id number] / / Synthes [id number] Plate Small H Ti 2.4mm Screw 8 Hole Lock Bone Sternal - [id number] Implanted:Qty: 1 on 11/28/2018 by José Miguel Neil MD at [facility] Synthes I [id number] / / Insurance [address] [address] CHOICE PLUS Advance Directives For more information, please contact: [phone] * Full Code (Latest Code Status on File) Date Activated Date Inactivated Comments 11/28/2018 11:07 AM 11/30/2018 5:47 PM * Full Code Date Activated Date Inactivated Comments 05/10/2018 6:42 PM 11/28/2018 5:17 AM * Full Code Date Activated Date Inactivated Comments 05/01/2018 11:33 AM 05/07/2018 7:17 PM Care Teams Diesel Motor Mechanic Relationship Specialty Start [place] [address] [address] [address] PCP - General Nurse Practitioner 02/16/21 [place] [address] [address] [address] Credit Control Administrator Cardiology 02/10/22
--- OUTSIDE RECORDS SUMMARY | 2024-06-28 00:08 | XMS_ITS | Encounter Summary ---
Author Organization [facility] Address [facility] [place] [address] Care Team Providers Care Research Interviewer Name Role Phone Cecelia Hurtado [facility] Primary Care Provider + Irene Jordan [facility] Primary Care Provider + Whitney Rees APRN Primary Care Provider [phone] Whitney Rees POWER TRANSFORMER REPAIR SUPERVISOR Primary Care Provider [phone] Livan Gao MD Unavailable [phone] Encounter Details Date Type Department Care Team (Late st Contact Info) Description 01/05/2023 [employer] Message Enc [facility] Family & Internal Medicine [address] [address] Cecelia Hurtado [facility] [address] [place] [phone] [facility] Social History Tobacco Use Types Packs/Day Years [...] Date Recorded Patient Health Questionnaire-2 Score 3 08/23/2022 Education Answer Date Recorded What is the [...] PM CDT documented as of this encounter Progress Notes * AGUILA Scruggs - 03/01/2023 3:43 PM CDT Phoned patient and left message on machine. documented in this encounter Plan of Treatment Not on file documented as of this encounter Visit Diagnoses Not on filedocumented in this encounter Additional Health Concerns Assessment Noted Time PHQ-9 Depression Total Score: 14 023 4:21 PM CDT documented as of this encounter Care Teams Research Interviewer Relationship Specialty Start Date End Date Cecelia Hurtado FNP-BC PCP - General Nurse Practitioner Family 02/11/2102/25/23 Irene Jordan FNP-BC [address] [place] [address] PCP - General Nurse Practitioner Family 03/04/2305/24 Whitney Rees APRN [address] [place] [address] PCP - General NURSE PRACTITIONER 02/26/23 03/03/23 Whitney Rees APRN [address] [place] [address] PCP - General NURSE PRACTITIONER 06/14/23 Livan Gao MD [address] [place] [address] ORTHOPAEDIC SURGERY 05/29/24 documented as of this encounter
--- OUTSIDE RECORDS SUMMARY | 2024-06-28 00:08 | XMS_ITS | Encounter Summary ---
Author Organization [facility] Address Formerly [facility], [facility] [place] [address] Care Team Providers Care Teacher Advisor Name Role Phone Isabell Horton NP Primary Care Provider Unav Cecelia Dorman [facility] Primary Care Provider + Irene Jordan [facility] Primary Care Provider + Whitney Rees APRN Primary Care Provider [phone]- [phone] Whitney Rees APRN Primary Care Provider +- [phone] Livan Gao MD Unavailable [phone] Encounter Details Date Type Department Care Team (Late st Contact Info) Description 06/04/2020 MyChart Message Enc [facility] Family & Internal Medicine [address] [address] Isabell Horton NP RE: Follow Up/Update Social History Tobacco Use Types Packs/Day Years Used Date Smoking Tobacco: Never Smokeless Tobacco: Never Alcohol Use Standard Drinks/Week Comments No 0 (1 standard drink = 0.6 oz pur e alcohol) AUDIT-C Answer Date Recorded Frequency of Alcohol Consumption Never 08/07/2018 Average Number of Drinks Not on file 019 Frequency of Binge Drinking Not on file 07/21 PHQ-2 Answer Date Recorded PHQ-2 Score - If the patient scores above 3, please move on to questions 3-9 6 05/26/2020 Education Answer Date Recorded What is the [...] Orientation Straight 08/07/2018 1: 32 PM CDT COVID-19 Exposure Response Date Recorded In the last month, have you been in contact with someone who was confirmed or suspected to have Coronavirus / COVID-19? No / Unsure 05/26/2020 3:10 PM FLIGHT CONTROL TOWER OPERATOR documented as of this encounter Plan of Treatment Not on file documented as of this encounter Visit Diagnoses Not on filedocumented in this encounter Additional Health Concerns Assessment Noted Time PHQ-9 Depression Total Score: 17 021 3:34 PM FLIGHT CONTROL TOWER OPERATOR documented as of this encounter Care Teams Teacher Advisor Relationship Specialty Start Date End Date Isabell Horton FREIGHT LOADER PCP - General NURSE PRACTITIONER 08/07/18 02/10/21 Cecelia Hurtado, [facility] PCP - General Nurse Practitioner Family 02/11/2102/25/23 Irene Jordan, [facility] [address], [address] [place] [address] PCP - General Nurse Practitioner Family 03/04/2305/24 Whitney Rees APRN [address] [place] [address] PCP - General NURSE PRACTITIONER 02/26/23 03/03/23 Whitney Rees APRN [address] [facility] [address] [place] [address] PCP - General NURSE PRACTITIONER 06/14/23 Livan Gao MD [address] [place] [address] ORTHOPAEDIC SURGERY 05/29/24 documented as of this encounter
--- OUTSIDE RECORDS SUMMARY | 2024-06-28 00:08 | XMS_ITS | Encounter Summary ---
Author Organization [facility] Address [facility] [place] [address] Care Team Providers Care Collect On Delivery Clerk Name Role Phone Isabell Horton NP Primary Care Provider Unav Cecelia Dorman [facility] Primary Care Provider + Irene Jordan [facility] Primary Care Provider + Whitney Rees APRN Primary Care Provider [phone]- [phone] Whitney Rees APRN Primary Care Provider +- [phone] Livan Gao MD Unavailable [phone] Encounter Details Date Type Department Care Team (Late st Contact Info) Description 06/05/2020 MyChart Message Enc [facility] Family & Internal Medicine [address] [address] Isabell Horton NP RE: Test Results Social History Tobacco Use Types Packs/Day Years [...] COVID-19? No / Unsure 05/26/2020 3:10 PM CUSTOM TAILOR documented as of this encounter Plan of Treatment Not on file documented as of this encounter Visit Diagnoses Not on filedocumented in this encounter Additional Health Concerns Assessment Noted Time PHQ-9 Depression Total Score: 17 021 3:34 PM CUSTOM TAILOR documented as of this encounter Care Teams Collect On Delivery Clerk Relationship Specialty Start Date End Date Isabell Horton [place] PCP - General NURSE PRACTITIONER 08/07/18 02/10/21 Cecelia Hurtado [facility] PCP - General Nurse Practitioner Family 02/11/2102/25/23 Irene Jordan [facility] [address], [address] [place] [address] PCP - General Nurse Practitioner Family 03/04/2305/24 Whitney Rees APRN [address] [place] [address] PCP - General NURSE PRACTITIONER 02/26/23 03/03/23 Whitney Rees APRN [address] [place] [address] PCP - General NURSE PRACTITIONER 06/14/23 Livan Gao MD [address] [place] [address] ORTHOPAEDIC SURGERY 05/29/24 documented as of this encounter
--- OUTSIDE RECORDS SUMMARY | 2024-06-28 00:08 | XMS_ITS ---
Author Organization [facility] [place] Address [address] [place] [address] Phone Care Team Providers Care Recording Artist Name Role Phone Unavailable Primary Care Provider Unavailabl e Active Problems Patient Care Coordination No te Formatting of this note migh t be different from the original. Primary Care: Stephani Tellez MD Referring Provider: Stephani Tellez MD [id number] [place] [address] [address] [place] [address] Other: Breast surgeon: Mckayla Minor Oncologist: Lorraine Shah onc: Lorraine Yanez Account Manager - Dr. Vu Castaneda Problem Noted Date [...]
--- OUTSIDE RECORDS SUMMARY | 2024-06-28 00:08 | XMS_ITS | Encounter Summary ---
Author Organization [facility] Address [facility] [place] [address] Care Team Providers Care Manager Registration Name Role Phone Cecelia Hurtado [facility] Primary Care Provider + Irene Jordan [facility] Primary Care Provider + Whitney Rees APRN Primary Care Provider [phone]- [phone] Whitney Rees APRN Primary Care Provider [phone]- [phone] Livan Gao MD Unavailable [phone] Encounter Details Date Type Department Care Team (Late st Contact Info) Description 09/08/2022 [email or web address] Message Enc [facility] Family & Internal Medicine [address] [address] [facility] [address] [place] [address] Handicap Parking Social History Tobacco Use Types Packs/Day Years [...] Exposure Response Date Recorded In the last 10 days, have yo u been in contact with someone who was confirmed or suspected to have Coronavirus/COVID-19? No / Unsure 08/23/2022 3:30 PM CDT documented as of this encounter Progress Notes * AGUILA Scruggs - 09/15/2022 10:08 AM CDT Okay for parking placard. * Luisa Whitfield RN - 09/08/2022 3:48 PM CDT Please advise documented in this encounter Plan of Treatment Not on file documented as of this encounter Visit Diagnoses Not on filedocumented in this encounter Additional Health Concerns Assessment Noted Time PHQ-9 Depression Total Score: 14 023 4:21 PM CDT documented as of this encounter Care Teams Manager Registration Relationship Specialty Start Date End Date Cecelia Hurtado FNP-BC PCP - General Nurse Practitioner Family 02/11/2102/25/23 Irene Jordan FNP-BC [address], [address] [place] [address] PCP - General Nurse Practitioner Family 03/04/2305/24 Whitney Rees APRN [address] [place] [address] PCP - General NURSE PRACTITIONER 02/26/23 03/03/23 Whitney Rees APRN [address] [place] [address] PCP - General NURSE PRACTITIONER 06/14/23 Livan Gao MD [address] [place] [address] ORTHOPAEDIC SURGERY 05/29/24 documented as of this encounter
--- OUTSIDE RECORDS SUMMARY | 2024-06-28 00:08 | XMS_ITS | Encounter Summary ---
Author Organization [facility] Address [address] [place] [address] Care Team Providers Care Underwriting Sales Representative Name Role Phone Isabell Horton COLLECTION CORRESPONDENT Primary Care Provider Unav Cecelia Dorman [facility] Primary Care Provider + Irene Jordan [facility] Primary Care Provider + Whitney Rees APRN Primary Care Provider [phone]- [phone] Whitney Rees APRN Primary Care Provider [phone]- [phone] Livan Gao MD Unavailable [phone] Reason for Referral * Consultation (Urgent) - Closed Specialty Diagnoses / Procedures Referred By Bella ferrer Referred To Contact WOUND CARE / [facility] Wound Care Diagnoses Cellulitis of right lower extremity Isabell Horton NP [facility] Wound Care [address] [place] [address] Phone: tel: fax: Referral ID Status Reason Start Date Expiration Date V isits Requested Visits Authorized [id number] Closed Specialty Services 08/19/2020 09/19/2021 1 1 Encounter Details Date Type Department Care Team (Late st Contact Info) Description 08/19/2020 Pawziihart Message [facility] [address] [place] [address] Isabell Horton NP Follow Up/Update Social History Tobacco Use Types [...] have Coronavirus / COVID-19? No / Unsure 08/21/2020 1:04 PM CDT documented as of this encounter Progress Notes * Sirena Julien RN - 08/20/2020 9:10 AM CDT Spoke with Kim, she does not want patient to continue or start any abx until seen by Dr. Dawson. Patient is scheduled in the wound care center at [facility] for 08/22 at 8:15. She is aware and v/u. * Sirena Julien RN - 08/19/2020 4:44 PM CDT Per Kim, see if patient can be seen in wound care. Referral has been placed. Will reach out to Mckayla in wound care. documented in this encounter Plan of Treatment Scheduled Referrals Name Type Priority Associated Diagnoses Orde r Schedule Ambulatory referral to Wound Clinic Referral Routine Cellulitis of right lower extremity Ordered: 08/19/2020 documented as of this encounter Visit Diagnoses Diagnosis Cellulitis of right lower extremity- Primary Cellulitis and abscess of leg, except foot documented in this encounter Additional Health Concerns Assessment Noted Time PHQ-9 Depression Total Score: 17 021 3:34 PM IT TECHNICAL SUPPORT SPECIALIST documented as of this encounter Care Teams Underwriting Sales Representative Relationship Specialty Start Date End Date Isabell Horton, [place] PCP - General NURSE PRACTITIONER 08/07/18 02/10/21 Cecelia Hurtado, [facility] PCP - General Nurse Practitioner Family 02/11/2102/25/23 Irene Jordan [facility] [address], [address] [place] [address] PCP - General Nurse Practitioner Family 03/04/2305/24 Whitney Rees APRN [address] [place] [address] PCP - General NURSE PRACTITIONER 02/26/23 03/03/23 Whitney [facility]es [facility] [address] [facility] [address] [place] [address] PCP - General NURSE PRACTITIONER 06/14/23 Livan Gao MD [address] [address] ORTHOPAEDIC SURGERY 05/29/24 documented as of this encounter
--- OUTSIDE RECORDS SUMMARY | 2024-06-28 00:08 | XMS_ITS | Encounter Summary ---
Author Organization [facility] Address [address] [place] [address] Care Team Providers Care News Director Name Role Phone Whitney Rees APRN Primary Care Provider [phone]- [phone] Livan Gao MD Unavailable [phone] Encounter Details Date Type Department Care Team (Latest Contact Info) Description 11/28/2023 BeehiveID Message Enc [facility] Family & Internal Medicine [address] [address] Whitney Rees APRN [id number] [place] [address] Medication Interactions Social History Tobacco Use Types Packs/Day Years [...] as of this encounter Progress Notes * Whitney Rees APRN - 11/29/2023 9:19 AM CDT Coricidin and mucinex are safe. - I would avoid most decongestants (mucinex DM) due to interactions. documented in this encounter Plan of Treatment Not on file documented as of this encounter Visit Diagnoses Not on filedocumented in this encounter Additional Health Concerns Assessment Noted Time PHQ-9 Depression Total Score: 14 06/16/ 024 3:47 PM SENIOR LIBRARIAN documented as of this encounter Care Teams News Director Relationship Specialty Start Date End Date Whitney Rees APRN [address] [facility] [address] [place] [address] PCP - General NURSE PRACTITIONER 06/14/23 Livan Gao MD [address] [place] [address] ORTHOPAEDIC SURGERY 05/29/24 documented as of this encounter
--- OUTSIDE RECORDS SUMMARY | 2024-06-28 00:08 | XMS_ITS | Clinical Summary ---
Author Organization [facility] [place] Address [address] [place] [address] Phone Care Team Providers Care Quality Assurance Engineer Name Role Phone Unavailable Primary Care Provider [...] Tellez MD [place]: [place] [id number] [address] Other: Breast surgeon: Mckayla Minor Oncologist: Lorraine Shah onc: Lorraine Yanez Supervisor Cap And Hat Production - Dr. Vu Castaneda Problem Noted Date [...] Encounters Date Type Department Care Team Description 06/26/2024 External Device Data STL ABSTRACTION Provider, Abstract 06/20/2024 External Device Data STL ABSTRACTION Provider, Abstract 06/14/2024 External Device Data ST[facility] ABSTRACTION Provider, Abstract 06/05/2024 1:00 PM REFERENCE DATA EXPERT - 06/05/2024 11:59 PM REFERENCE DATA EXPERT Hospital Encounter [facility] Connor [place] [address] [place] [address] Lorraine Mendoza MD Showalter, Jennifer, Occupational Therapist Discharge Disposition: Home or Self Care 06/05/2024 External Device Data STL ABSTRACTION Provider, Abstract 05/22/2024 Orders Only [facility] [address] Lorraine Mendoza MD 05/21/2024 Telephone [facility] [address] Lorraine Mendoza MD Question 04/10/2024 11:00 AM REFERENCE DATA EXPERT Office Visit [facility] [address] Lorraine Mendoza MD Right anterior shoulder pain [...] on file Legal Sex Female 6:07 AM REFERENCE DATA EXPERT Gender Identity Not on file Sexual Orientation Not on file Occupation Industry Job Start Date Job End Date Not on file Not on file Not on file Not on file Not on file Not on file Not on file Not on file Last Filed Vital Signs Vital Sign Reading Time Taken Comments Blood Pressure 124/68 04/10/2024 10:57 AM REFERENCE DATA EXPERT Pulse 63 04/10/2024 10:57 AM REFERENCE DATA EXPERT Temperature 36.5 C (97.7 F) 04/10/2024 10:57 AM REFERENCE DATA EXPERT Respiratory Rate 16 04/10/2024 10:57 AM REFERENCE DATA EXPERT Oxygen Saturation 97% 04/10/2024 10:57 AM REFERENCE DATA EXPERT Inhaled Oxygen Concentration - - Weight 85.3 kg (188 lb) 04/10/2024 10:57 AM REFERENCE DATA EXPERT Height 160 cm (5' 3 ) 04/10/2024 10:57 AM REFERENCE DATA EXPERT Body Mass Index 33.3 04/10/2024 10:57 AM REFERENCE DATA EXPERT Plan of Treatment Upcoming Encounters Date Type Department Care Team (Late st Contact Info) Description 10/11/2024 11:00 AM CDT Office Visit [facility] [address] Lorraine Mendoza MD [address] [place] [address] Health Maintenance Due Date Last [...] 2022 INFLUENZA VACCINE (#1) 2023 Medicare Advantage ([place]) Preventative Visit/Annual Wellness Visit 05/23/2024 08/14/2021, 03/19/2016 Pre-Diabetes and Diabetes Screening 04/13/2026 04/13/2023, 04/21/2021, 11/28/2019, Additional history exists Medical Devices Implanted Type Area Industrial Spraypainter Device Identifier Shelf Expiration Date Model / Serial / Lot Port Pwrprt Mri 8fr [id number] Implanted:Qty: 1 on 07/26/2011 at [facility] Port Right: Chest CR BARD- ACCESS SYS 01/25/2013 [id number] / / [id number] Procedures Procedure Name Priority Date/Time Associated Diagnosis Comments COMPREHENSIVE METABOLIC PANEL Stat 04/10/2024 11:44 AM REFERENCE DATA EXPERT 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, estrogen receptor negative (CMS/HCC) CBC WITH DIFFERENTIAL Stat 04/10/2024 11:44 AM REFERENCE DATA EXPERT 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, estrogen receptor negative (CMS/HCC) CANCER ANTIGEN 15-3 Routine 04/10/2024 1 1:44 AM REFERENCE DATA EXPERT 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, estrogen receptor negative (CMS/HCC) CEA Routine 04/10/2024 11:44 AM REFERENCE DATA EXPERT 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, estrogen receptor negative (CMS/HCC) LACTATE DEHYDROGENASE Routine 04/10/2024 11:44 AM REFERENCE DATA EXPERT 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, estrogen receptor negative (CMS/HCC) IMMUNOGLOBULINS IGG IGA IGM Routine 04/10/2024 11:44 AM REFERENCE DATA EXPERT 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 Values obtained from different assay methods cannot be used interchangeably. CA 15-3 levels, regardless of value, should not be interpreted as absolute evidence of the presence or absence of disease. Test Performed at: [facility] [address] [place] [id number] Lidia Hill MD Blood 04/10/2024 11:4 4 AM REFERENCE DATA EXPERT 04/10/2024 7:16 PM REFERENCE DATA EXPERT us Lorraine Mendoza MD CHEMISTRY ORDERABLES Final Res ult [facility] [address] [address] [phone] [address] * (ABNORMAL) CBC WITH DIFFERENTIAL (04/10/2024 11:44 AM REFERENCE DATA EXPERT) Pathologist [facility] WBC 4.8 4.0 - 9.8 K/uL 04/10/2024 11:52 AM [facility] RBC 3.74(L) 3.90 - 4.90 M/uL 04/10/2024 11:52 AM [facility] HEMOGLOBIN 12.1 11.8 - 14.8 g/dL 04/10/2024 11:52 AM [facility] HEMATOCRIT 38.7 35.5 - 44.0 % 04/10/2024 11:52 AM [facility] MCV 103.5(H) 82.0 - 99.0 fL 04/10/2024 11:52 AM [facility] MCH 32.4 27.2 - 32.6 pg 04/10/2024 11:52 AM [facility] MCHC 31.3 30.0 - 37.0 g/dL 04/10/2024 11:52 AM [facility] RDW 13.8 11.5 - 14.5 % 04/10/2024 11:52 AM [facility] RDW-STDEV 51.7 37.0 - 54.0 fL 04/10/2024 11:52 AM [facility] PLATELETS 188 140 - 350 K/uL 04/10/2024 11:52 AM [facility] MPV 11.4 9.0 - 13.0 fL 04/10/2024 11:52 AM [facility] NEUTROPHILS 73(H) 45 - 70 % 04/10/2024 11:52 AM [facility] LYMPHOCYTES 15(L) 16 - 45 % 04/10/2024 11:52 AM [facility] MONOCYTES 10 3 - 13 % 04/10/2024 11:52 AM [facility] EOSINOPHILS 3 <7 % 04/10/2024 11:52 AM [facility] BASOPHILS 0 <3 % 04/10/2024 11:52 AM [facility] NEUTROPHIL ABSOLUTE 3.49 1.90 - 7.00 K/uL 04/10/2024 11:52 AM [facility] LYMPHOCYTE ABSOLUTE 0.70 0.70 - 4.50 K/uL 04/10/2024 11:52 AM [facility] MONOCYTE ABSOLUTE 0.49 0.10 - 1.30 K/uL 04/10/2024 11:52 AM [facility] EOSINOPHIL ABSOLUTE 0.12 <0.80 K/uL 04/10/2024 11:52 AM REFERENCE DATA EXPERT [facility] BASOPHILS ABSOLUTE 0.01 <0.30 K/uL 04/10/2024 11:52 AM REFERENCE DATA EXPERT [facility] Blood Venipuncture / Unknown 04/10/2024 11:44 AM REFERENCE DATA EXPERT 04/10/2024 11:44 AM REFERENCE DATA EXPERT Narrative [facility] - 04/10/2024 11:52 AM REFERENCE DATA EXPERT Repeated and verified. Lorraine Mendoza MD HEMATOLOGY ORDERABLES Final Re sult Performing Organization Address [facility] Co de Phone Number [facility] CLIA# [id number] [address] [place] [address] * (ABNORMAL) IMMUNOGLOBULINS IGG IGA IGM (04/10/2024 11:44 AM REFERENCE DATA EXPERT) Pathologist [facility] IGA 410(H) 70 - 320 mg/dL [facility] IGG 797 600 - 1540 mg/dL [facility] IGM 38(L) 50 - 300 mg/dL [facility] Comment: Test Performed at: [facility] [id number] [place] [id number] Lidia Hill MD Blood 04/10/2024 11:4 4 AM REFERENCE DATA EXPERT 04/10/2024 7:16 PM REFERENCE DATA EXPERT Lorraine Mendoza MD CHEMISTRY ORDERABLES Final Res ult [facility] [phone] [facility] [address] [place] [address] * LACTATE DEHYDROGENASE (04/10/2024 11:44 AM REFERENCE DATA EXPERT) LD (LACTATE DEHYDROGENASE) 147 120 - 250 U/L [facility] Comment: Test Performed at: [facility] [address] [place] [address] Lidia Hill Blood 04/10/2024 11:4 4 AM REFERENCE DATA EXPERT 04/10/2024 7:16 PM REFERENCE DATA EXPERT Lorraine Mendoza MD CHEMISTRY ORDERABLES Final Res ult Performing Organization Address [facility]/ZIP [facility] Phone Number [facility] [phone] [facility] [address] [address] * CEA (04/10/2024 11:44 AM REFERENCE DATA EXPERT) CEA <2.0 See Note: ng/mL [facility] Comment: Reference Range: Non-Smoker: <2.5 Smoker: <5.0 This test was performed using the Siemens chemiluminescent method. Values obtained from different assay methods cannot be used interchangeably. CEA levels, regardless of value, should not be interpreted as absolute evidence of the presence or absence of disease. Test Performed at: [facility] [id number] [place] [phone] FelisaLiz Hill MD Blood 04/10/2024 11:4 4 AM REFERENCE DATA EXPERT 04/10/2024 7:16 PM REFERENCE DATA EXPERT Lorraine Mendoza MD CHEMISTRY ORDERABLES Final Res ult Performing Organization Address City/[facility] Phone Number [facility] [phone] [facility] [address] [place] [address] * (ABNORMAL) COMPREHENSIVE METABOLIC PANEL (04/10/2024 11:44 AM REFERENCE DATA EXPERT) SODIUM 139 136 - 145 mmol/L 04/10/2024 12:10 PM REFERENCE DATA EXPERT [facility] POTASSIUM 4.2 3.5 - 5.1 mmol/L 04/10/2024 12:10 PM REFERENCE DATA EXPERT [facility] CHLORIDE 105 98 - 107 mmol/L 04/10/2024 12:10 PM REFERENCE DATA EXPERT [facility] CO2 24 22 - 29 mmol/L 04/10/2024 12:10 PM [facility] CALCIUM 9.2 8.6 - 10.2 mg/dL 04/10/2024 12:10 PM [facility] BUN 14 6 - 20 mg/dL 04/10/2024 12:10 PM [facility] CREATININE 0.88 0.50 - 0.90 mg/dL 04/10/2024 12:10 PM [facility] GLUCOSE 106(H) 74 - 99 mg/dL 04/10/2024 12:10 PM [facility] TOTAL PROTEIN 7.0 6.6 - 8.7 g/dL 04/10/2024 12:10 PM [facility] ALBUMIN 4.3 3.5 - 5.2 g/dL 04/10/2024 12:10 PM [facility] BILIRUBIN TOTAL 0.3 <1.2 mg/dL 12:10 PM [facility] ALKALINE PHOSPHATASE 66 40 - 129 U/L 04/10/2024 12:10 PM [facility] AST 16 <40 U/L 04/10/2024 12:10 PM [facility] ALT 17 4 - 41 U/L 04/10/2024 12:10 PM [facility] GFR >60 >=60 mL/min/1.7 3 sq meter 04/10/2024 12:10 PM [facility] Comment:eGFR calculated with 2020 CKD-EPI equation. Vegetarian diet, extremely high or low muscle mass, and may affect results. Cystatin C with Glomerular Filtration Rate is a suitable alternative for these patients. ANION GAP 10 8 - 16 mmol/L 04/10/2024 12:10 PM [facility] Blood Venipuncture / Unknown 04/10/2024 11:44 AM REFERENCE DATA EXPERT 04/10/2024 11:44 AM REFERENCE DATA EXPERT Lorraine Mendoza MD CHEMISTRY ORDERABLES Final Res ult [id number] [address] [place] [address] * HEMOGLOBIN A1C (04/13/2023 10:59 AM REFERENCE DATA EXPERT) HEMOGLOBIN A1C 5.4 <5.7 % of total Hgb [facility] Comment: For the purpose of screening for the presence of diabetes: <5.7% Consistent with the absence of diabetes 5.7-6.4% Consistent with increased risk for diabetes (prediabetes) > or =6.5% Consistent with diabetes This assay result is consistent with a decreased risk of diabetes. Currently, no consensus exists regarding use of hemoglobin A1c for diagnosis of diabetes in children. According to [place] Diabetes Association (ADA) guidelines, hemoglobin A1c <7.0% represents optimal control in non- diabetic patients. Different metrics may apply to specific patient populations. Standards of Medical Care in Diabetes(ADA). ESTIMATED AVERAGE GLUCOSE (MG/DL) 108 mg/dL [facility] ESTIMATED AVERAGE GLUCOSE (MMOL/L) 6.0 mmol/L [facility] Comment: Test Performed at: [facility] [address] [place] [address] Lidia Hill MD Blood 04/13/2023 10:5 9 AM REFERENCE DATA EXPERT 04/14/2023 5:34 AM REFERENCE DATA EXPERT Lorraine Mendoza MD CHEMISTRY ORDERABLES Final Res ult [facility] [phone] [facility] [address] [place] [address] * CERV/VAG CYTOPATH, THIN PREP ORNAMENTAL BRICK INSTALLER AND HPV (CP) (02/12/2015) Endocervical us Pamela Jeong MD PATHOLOGY/CYTOLOGY ORD ERABLES Final Result EXTERNAL LAB * MAMMO DIGITAL DIAG UNI LEFT (06/09/2011 5:16 PM REFERENCE DATA EXPERT) Anatomical Region Laterality Modality Breast Left Mammography 06/09/2011 5:13 PM REFERENCE DATA EXPERT Impressions 06/14/2011 8:44 AM REFERENCE DATA EXPERT IMPRESSION: 1. Ultrasound guided cyst aspiration left breast 3:00. 2. Ultrasound-guided 10-gauge vacuum-assisted core needle biopsy left breast, 9:00, with tissue marker placement. Pathology pending. 3. Ultrasound-guided 10-gauge vacuum-assisted core needle biopsy left breast, 7:00, with tissue marker placement. Pathology pending. Narrative 06/14/2011 8:44 AM REFERENCE DATA EXPERT ADDENDUM: Patient is status post ultrasound guided [...] COMPARISON: Outside hospital mammograms and ultrasound from [place], [place] dated 06/08/2011. PROCEDURE AND FINDINGS: The [...] COMPARISON: Outside hospital mammograms and ultrasound from [place], [place] dated 06/08/2011. PROCEDURE AND FINDINGS: The [...] 7:00, with tissue marker placement. Pathology pending. Mckayla Minor MD MAMMO ORDERABLES Final Result from Last 3 Months or Most Recently Relevant to Health Maintenance Insurance [facility] [id number] Member Subscriber Plan / Payer (Ef fective 2024-Present) Name:Julisa Juarez Relation to Subscriber:Self Name:Julisa Juarez Payer ID:[id number] (NAIC) Type:PPO Address: [place] [id number] Advance Directives For more information, please contact: [phone] * Full Code (Latest Code Status on [...]
--- OUTSIDE RECORDS SUMMARY | 2024-06-28 00:08 | XMS_ITS | Encounter Summary ---
Author Organization [facility] Address [address] [place] [address] Care Team Providers Care Lav Crewman Name Role Phone Whitney Rees APRN Primary Care Provider [phone] Livan Gao MD Unavailable [phone] Encounter Details Date Type Department Care Team (Late st Contact Info) Description 06/19/2023 Dress Code Message Enc [facility] Medical Group Family & Internal Medicine [address] [address] Whitney Rees APRN [id number] [place] [address] Marleni Littlejohn Social History Tobacco Use Types Packs/Day Years [...] Progress Notes * Whitney Rees APRN - 06/20/2023 12:45 PM CST Thank you. EQUIPMENT DESIGN ENGINEER * Ilana Caro MA - 06/20/2023 8:57 AM CST fyi EQUIPMENT DESIGN ENGINEER * Ilana Caro MA - 06/20/2023 8:13 AM CST FYI EQUIPMENT DESIGN ENGINEER documented in this encounter Plan of Treatment Not on file documented as of this encounter Visit Diagnoses Not on filedocumented in this encounter Additional Health Concerns Assessment Noted Time PHQ-9 Depression Total Score: 14 024 3:47 PM MINE EQUIPMENT DESIGN ENGINEER documented as of this encounter Care Teams Lav Crewman Relationship Specialty Start Date End Date Whitney Rees APRN [address] [address] PCP - General NURSE PRACTITIONER 06/14/23 Livan Gao MD [address] [address] ORTHOPAEDIC SURGERY 05/29/24 documented as of this encounter
--- OUTSIDE RECORDS SUMMARY | 2024-06-28 00:08 | XMS_ITS | Encounter Summary ---
Author Organization [facility] Address [facility] [place] [address] Care Team Providers Care Brick Loader Name Role Phone Isabell Horton RESEARCH MANAGER Primary Care Provider Unav Cecelia Dorman [facility] Primary Care Provider + Irene Jordan [facility] Primary Care Provider + Whitney Rees APRN Primary Care Provider [phone]- [phone] Whitney Rees APRN Primary Care Provider [phone]- [phone] Livan Gao MD Unavailable [phone] Encounter Details Date Type Department Care Team (Late st Contact Info) Description 08/08/2020 Chibwet Message [facility] [address] [place] [address] Isabell Horton NP RE: Question Social History Tobacco Use Types Packs/Day Years [...] Progress Notes * Sirena Julien RN - 08/15/2020 10:43 AM CDT Called and spoke with Julisa. She is scheduled for in office visit. * Isabell Horton NP - 08/15/2020 10:14 AM CDT I would almost want to see her either in person or via video visit to make sure she is not getting infection in the joint. Thanks * Sirena Julien RN - 08/15/2020 9:16 AM CDT Please advise. * Isabell Horton NP - 08/08/2020 3:40 PM CDT I will send an antibiotic in just to make sure she does not get infection, since it has been draining and she cannot afford to get an infection. Keep clean and wash with anti bacterial soap daily, she can use CARLOS once daily. Thanks documented in this encounter Plan of Treatment Not on file documented as of this encounter Visit Diagnoses Not on filedocumented in this encounter Additional Health Concerns Assessment Noted Time PHQ-9 Depression Total Score: 17 05/26/ 021 3:34 PM GARAGEMAN documented as of this encounter Care Teams Brick Loader Relationship Specialty Start Date End Date Isabell Horton NP PCP - General NURSE PRACTITIONER 08/07/18 02/10/21 Cecelia Hurtado, [facility] PCP - General Nurse Practitioner Family 02/11/2102/25/23 Irene Jordan, [facility] [address], [address] [place] [address] PCP - General Nurse Practitioner Family 03/04/2305/24 Whitney Rees APRN [address] [place] [address] PCP - General NURSE PRACTITIONER 02/26/23 03/03/23 Whitney Rees APRN [address] [place] [place] [address] PCP - General NURSE PRACTITIONER 06/14/23 Livan Gao MD [address] [address] ORTHOPAEDIC SURGERY 05/29/24 documented as of this encounter
--- OUTSIDE RECORDS SUMMARY | 2024-06-28 00:08 | XMS_ITS | Encounter Summary ---
Author Organization [facility] Address [address] [place] [address] Care Team Providers Care Dock Superintendent Name Role Phone Cecelia Hurtado [facility] Primary Care Provider + Irene Jordan [facility] Primary Care Provider + Whitney Rees APRN Primary Care Provider [phone]- [phone] Whitney Rees APRN Primary Care Provider [phone]- [phone] Livan Gao MD Unavailable [phone] Encounter Details Date Type Department Care Team (Late st Contact Info) Description 02/15/2022 MyChart Message Enc [facility] Medical [facility] Family & Internal Medicine [address] [address] Cecelia Hurtado [facility] [address] [place] [address] Attending Physicians Form Social History Tobacco Use Types Packs/Day Years [...] please move on to questions 3-9 6 02/15/2022 Education Answer Date Recorded What is the [...] suspected to have Coronavirus/COVID-19? No / Unsure 02/15/2022 1:31 PM CDT documented as of this encounter Plan of Treatment Not on file documented as of this encounter Visit Diagnoses Not on filedocumented in this encounter Additional Health Concerns Assessment Noted Time PHQ-9 Depression Total Score: 16 022 2:38 PM CDT documented as of this encounter Care Teams Dock Superintendent Relationship Specialty Start Date End Date Cecelia Hurtado [facility] PCP - General Nurse Practitioner Family 02/11/2102/25/23 Irene Jordan [facility] [address], [address] [place] [address] PCP - General Nurse Practitioner Family 03/04/2305/24 Whitney Rees APRN [address] [place] [address] PCP - General NURSE PRACTITIONER 02/26/23 03/03/23 Whitney Rees APRN [address] [place] [address] PCP - General NURSE PRACTITIONER 06/14/23 Livan Gao MD [address] [facility] [address] [place] [address] ORTHOPAEDIC SURGERY 05/29/24 documented as of this encounter
--- OUTSIDE RECORDS SUMMARY | 2024-06-28 00:08 | XMS_ITS | Referral Summary ---
Author Organization [facility] D Address [address] [place] [address] Care Team Providers Care Tie Tape Machine Operator Name Role Phone Cecelia Hurtado NP Primary Care Provider [phone] Tavon Camejo MD Unavailable [phone] Allergies Active Allergy Reactions Criticality Noted Date Comments Cefazolin Flushing (skin),Redness Low 11/29/2018 Clindamycin Itching Low 08/15/2020 Codeine Nausea only Low 05/01/2018 Morphine Rash Medium 04/20/2018 Awvowtke-Nuwemaoeud-Ygysoysxx Blisters High [address] [...] 12/21/2019 Assessment & Plan (06/27/2020 12:29 PM WAITER): On today's echocardiogram, her aortic valve appears [...] made. Assessment & Plan (06/27/2020 12:28 PM WAITER): Blood pressure is normal. Interestingly, she is [...] 3-4 Assessment & Plan (05/08/2019 12:32 PM WAITER): Classic history, Mallampati 3-4 Home sleep study ordered History of left breast cancer 05/08/2019 Overview (05/08/2019): Primary left breast 2012 Bilateral mastectomies Chemotherapy Radiation No hormonal therapy Assessment & Plan (05/08/2019 1:19 PM WAITER): Primary left breast 2012 Bilateral mastectomies Chemotherapy Radiation No hormonal therapy Thoracic aortic aneurysm without rupture 019 Overview (05/08/2019): Keely sternotomy ascending repair Dr. Neil 05/01/2018 Sternal dehiscence repair November 2018 with plate Assessment & Plan (05/08/2019 12:34 PM WAITER): Keely sternotomy ascending repair Dr. Neil 05/01/2018 Sternal dehiscence repair November 2018 with plate Other chest pain 11/03/2018 Overview (11/03/2018): Added automatically from request for surgery [id number] Assessment & Plan (02/16/2021 4:22 PM CDT): [...] (04/20/2018): Added automatically from request for surgery [id number] Assessment & Plan (12/21/2019 4:49 PM CDT): [...] review. Assessment & Plan (06/27/2020 12:28 PM WAITER): Recent CT scan looked good. Vasovagal episode [...] on file Legal Sex Female 7:22 PM WAITER Gender Identity Not on file Sexual Orientation Not on file Last Filed Vital Signs Vital Sign Reading Time Taken Comments Blood Pressure 120/74 06/24/2022 11:07 AM WAITER Pulse 74 06/24/2022 11:07 AM WAITER Temperature 36.3 C (97.4 F) 11/30/2018 7:54 AM CDT Respiratory Rate 18 06/24/2022 11:07 AM WAITER Oxygen Saturation 97% 02/19/2022 2:11 PM CDT Inhaled Oxygen Concentration - - Weight 87.1 kg (192 lb) 06/24/2022 11:07 AM WAITER Height 162.6 cm (5' 4 ) 06/24/2022 11:07 AM WAITER Body Mass Index 32.96 06/24/2022 11:07 AM WAITER Plan of Treatment Not on file Medical Devices Implanted Type Area Resource Specialist Device Identifier Shelf Expiration Date Model / Serial / Lot Vascutek Terumo [id number] Vascutek 26mm 30cm Woven Thorax Abdomen Straight Graft - [id number] - [id number] Implanted:Qty: 1 on 05/01/2018 by José Miguel Neil MD at [facility] N/A: Aorta Vascutek Terumo 12/20/2020 [id number] / [id number] / [id number] Synthes [id number] 3mm 14mm Self Drill Lock Sternal Screw Bone Titanium Nonsterile - [id number] Implanted:Qty: 10 on 11/28/2018 by José Miguel Neil MD at [facility] Synthes I [id number] / / Synthes [id number] Plate Small H Ti 2.4mm Screw 8 Hole Lock Bone Sternal - [id number] Implanted:Qty: 1 on 11/28/2018 by José Miguel Neil MD at [facility] Synthes I 460.027 / / Insurance [facility] CHOICE PLUS [facility] CHOICE [place] [address] [place] [address] CHOICE PLUS Advance Directives For more information, please contact: [phone] * Full Code (Latest Code Status on File) Date Activated Date Inactivated Comments 11/28/2018 11:07 AM 11/30/2018 5:47 PM * Full Code Date Activated Date Inactivated Comments 05/10/2018 6:42 PM 11/28/2018 5:17 AM * Full Code Date Activated Date Inactivated Comments 05/01/2018 11:33 AM 05/07/2018 7:17 PM Care Teams Tie Tape Machine Operator Relationship Specialty Start [place] [id number] [address] [facility] [address] [place] [address] PCP - General Nurse Practitioner 02/16/21 [place] [id number] [address] [facility] [address] [place] [address] Shredded Filler Cutter Operator Cardiology 02/10/22
[2024-06-28] MEDS: KETOROLAC 15 MG/ML VIAL (*BKC) IV PUSH (11:45)
[2024-06-28] MEDS: ACETAMINOPHEN 500 MG TABLET 1000 MG PO (11:45)
[2024-06-28] MEDS: LACTATED RINGERS 1,000 ML 30 ML IV CONT ×2 (11:45→15:15)
[2024-06-28 11:51] LABS: Anion Gap 10 mmol/L (4-12); Blood Urea Nitrogen 22 mg/dL (7-17); Calcium 9.3 mg/dL (8.4-10.2); Carbon Dioxide 27 mmol/L (22-30); Chloride 102 mmol/L (98-107); Estimated CRCL calculation 52 ml/min; Estimated Glomerular Filt Rate 54; Glucose 88 mg/dL (65-110); Potassium 4.5 mmol/L (3.4-5.0); Sodium 139 mmol/L (137-145)
--- NOTE | 2024-06-28 12:16 | P.PNAN_ITS ---
Anes - Initial Pre Proc Eval Procedure: Operation Date: 06/28/24 12:30 Proposed Procedures p Right Arthroscopic Rotator Cuff Repair, Subacromial Decompression, Proceed As Indicated - Livan Gao MD Date/Time: 06/28/24 12:16 Surgeon: Livan Gao MD Pre Op Diagnosis: right shoulder partial rot cuff tear Patient Data Age: 63 Gender: F Height: 1.6 m Weight: 85.7 kg Last Vital Signs Temp 36.2 C L 06/28/24 11:45 Pulse 65 06/28/24 11:45 Resp 14 06/28/24 11:45 BP 142/80 H 06/28/24 11:45 Pulse Ox 96 06/28/24 11:45 O2 Del Method Room Air 06/28/24 11:45 Allergies Allergy/AdvReac Type Severity Reaction Status Date / Time bacitracin (From Neosporin Allergy Intermediate Blister Verified 06/28/24 11:55 ([id number])) neomycin (From Neosporin Allergy Intermediate Blister Verified 06/28/24 11:55 ([id number])) polymyxin B (From Neosporin Allergy Intermediate Blister Verified 06/28/24 11:55 ([id number])) cefazolin (From Ancef) Allergy Unknown Rash Verified 06/28/24 11:55 codeine Allergy Unknown Unknown Verified 06/28/24 11:55 hydrocodone Allergy Unknown Unknown Verified 06/28/24 11:55 morphine Allergy Unknown Rash Verified 06/28/24 11:55 Home Medications ?Medication ?Instructions ?Recorded ?Confirmed ?Type aspirin 81 mg tablet,delayed 81 mg PO DAILY 02/23/24 06/28/24 History release benzonatate 100 mg capsule 100 mg PO BID PRN cough 02/23/24 06/28/24 History cholecalciferol (vitamin D3) 50 50 mcg PO DAILY 02/23/24 06/28/24 History mcg (2,000 unit) capsule clotrimazole 1 % topical cream 1 applic topical Q12H 02/23/24 06/28/24 History (Antifungal (clotrimazole)) ergocalciferol (vitamin D2) 1,250 1,250 mcg PO MONTHLY 02/23/24 06/28/24 History mcg (50,000 unit) capsule escitalopram oxalate 10 mg tablet 10 mg PO DAILY 02/23/24 06/28/24 History fexofenadine 180 mg tablet 180 mg PO DAILY 02/23/24 06/28/24 History ibuprofen 200 mg tablet 200 mg PO Q6H PRN pain 02/23/24 06/19/24 History metoprolol succinate 50 mg 50 mg PO DAILY 02/23/24 06/28/24 History tablet,extended release 24 hr spironolactone 25 mg tablet 25 mg PO DAILY 02/23/24 06/28/24 History bupropion HCl 150 mg 24 hr tablet, 150 mg PO DAILY 06/19/24 06/28/24 History extended release cyanocobalamin (vitamin B-12) 5,000 mcg sublingual DAILY 06/19/24 06/28/24 History 5,000 mcg sublingual tablet (Vitamin B-12) green tea leaf extract (Cardio Tea 1 cap PO DAILY 06/19/24 06/28/24 History capsule) aspirin 81 mg tablet,delayed 81 mg PO BID 14 days #28 tabs 06/28/24 Rx release oxycodone-acetaminophen 5 mg-325 1 - 2 tablet PO Q4-6H PRN pain 7 06/28/24 Rx mg tablet days #30 tabs Laboratory Tests 06/28/24 11:27 Sodium 139 mmol/L (137-145) Potassium 4.5 mmol/L (3.4-5.0) Chloride 102 mmol/L (98-107) Carbon Dioxide 27 mmol/L (22-30) Anion Gap 10 mmol/L (4-12) BUN 22 H mg/dL (7-17) Creatinine 1.04 H mg/dL (0.7-1.0) Estim Creat Clear Calc 52 ml/min Estimated GFR 54 L (59 - ) Glucose 88 mg/dL (65-110) Calcium 9.3 mg/dL (8.4-10.2) Patient hx anesthesia problems: none Family hx anesthesia problems: none Results Review: All pre-operative results and documents have been reviewed as part of the pre- operative evaluation. 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 Neil at [facility] History of bilateral mastectomy Social History Social History Smoking status: Never smoker Do You Feel Safe in your Home?: Yes Lack of Transportation: No Lack of Food: Never True Current Housing: I Have Housing Concerned About Future Housing: No Difficulty Paying Gas/Electric Bills: No Difficulty Paying for Meds: No Currently Unemployed: YES Education: High School Diploma/GED Difficulty w/ Childcare or Family Care: No Living arrangements: with family Spiritual care concerns: No Anes - Eval Final PreProcedure Day of Procedure 06/28/24 12:16 Patient weight: obese Heart: regular rate and rhythm Lungs: clear to auscultation Airway: Mallampati scale class II Neurological: alert and oriented Last oral intake: >/= 8 hours ASA classification: III Emergent: no Anesthetic plan: proceed Anesthesia type and monitoring: general ETT and standard monitoring Results Review: All pre-operative results and documents have been reviewed as part of the pre- operative evaluation. Informed Consent: The patient's anesthetic plan and its attendant risks and benefits were discussed with the patient/family/POA. Questions were solicited and answers provided to the satisfaction of the patient/family/POA.
--- NOTE | 2024-06-28 12:21 | WPDHPUPDATE1 ---
History and Physical Update Update Date/Time: 06/28/24 History and Physical has been reviewed, including an updated exam of the patient. There are NO changes in the patient's condition. Risks, benefits, and alternatives have been discussed and questions answered. Patient agrees to proceed with procedure.
[2024-06-28] MEDS: CLINDAMYCIN 900 MG/D5W 50 ML 900 MG/50 ML PIGGYBACK 50 MG IVPB (12:45)
[2024-06-28] MEDS: EPINEPHrine HCL INJ 1 MG/ML AMPUL 3 MG IRRIGATION (12:55)
[2024-06-28] MEDS: BUPIVACAINE/EPINEPHRINE 0.5% 30 ML VIAL INFILTRATE (13:14)
--- NOTE | 2024-06-28 15:25 | P.OP_ITS ---
Procedure Note - Detailed Date of Procedure 06/28/24 Pre-op Diagnosis 1.Right shoulder complete rotator cuff tear 2. Biceps rupture 3. Subacromial impingement. Post-op Diagnosis Same (1. Rotator cuff tear 2. Subacromial impingement 3. Biceps tendinosis 4. Degenerative labral tear) Procedure Performed Right shoulder 1. Arthroscopic rotator cuff repair 2. Arthroscopic subacromial decompression 3. Arthroscopic biceps tenodesis Surgeon Livan Gao MD Retail Sales Merchandiser Development Gerri Boyle PA-C Anesthesia General and Regional ( interscalene block) Findings Medium U shaped anterior supraspinatus tear. High grade partial biceps tendon rupture. Upper border subscapularis partial tear. 2 bone tunnel repair of the supraspinatus including a margin convergence for the immobile center of the tear. Biceps tenodesis at the articular margin, incorporating a luggage tag repair of the upper subscapularis into an Arthrex swivel lock anchor. Large subacromial spur treated with decompression. No significant arthritis. Description of Procedure Preoperative antibiotics were given. The patient was bought brought to the operating room. A general anesthetic was administered. The patient was carefully positioned in the beach chair position. The head and neck were carefully positioned. The non operative extremity was also carefully positioned. The shoulder was prepped and draped in the usual sterile fashion. Examination was performed. Standard posterior and anterior arthroscopic portals were established. Inflow achieved with the arthroscopic pump using saline and epinephrine. The glenohumeral joint was carefully inspected. There were no significant degenerative changes at the articular cartilage. The biceps was partially ruptured with high-grade disruption at the intra-articular portion. Evidence for anterior subluxation could be seen. High-grade partial upper border tearing of the subscapularis. The loop and tack was used to secure the biceps and tenodesed it to the articular margin. A luggage tag suture was p laced in the upper subscapularis. The sutures were secured with this so will lock anchor. The remaining biceps stump was removed prior to fixation. The rest of the labrum was in good shape. Attention was turned to the subacromial space. A complete bursectomy was performed. The tear configuration was carefully assessed. There was a tear of the anterior supraspinatus with moderate retraction. Almost a U shaped type tear. The posterior aspect was more mobile. Since the center anterior aspect was not mobile it was secured with a margin convergence suture. This created a more crescent type pattern. At this point, 2 tunnels were created at the rotator cuff. Three sutures were passed through each tunnel. All sutures were then passed through the cuff tissue. The sutures were tied arthroscopically. Slight shifting anteriorly was accomplished to create a more anatomic repair. The arthroscopic instruments were removed. The wounds were closed with 3-0 Monocryl subcuticular suture and steri strips. There were no complications. A sling was applied and the patient brought to the recovery room. Physician early childhood teacher assistant, Gerri Boyle PA-C, required for surgery; including patient positioning, draping, arthroscopic camera operation, maintaining instrument position, suture retrieval, wound closure, and dressing and sling placement. Implants Arthrex SwiveLock anchor 4.75 mm bio-absorbable. Estimated Blood Loss 20 Pathology None sent Complications No immediate complications Condition Stable Disposition PACU [facility] Billing Surgery - Charge Forward: Surgery Billing
[2024-06-28] MEDS: fentaNYL CITRATE INJ (*CRX) 100 MCG/2 ML VIAL 25 MCG IV PUSH ×6 (15:26→15:53)
[2024-06-28] MEDS: HYDROmorphone HCL INJ (*CRX) 1 MG/ML SYR IV PUSH (16:05)
--- NOTE | 2024-06-28 16:20 | SUR.PHASEI ---
pt received nerve block right shoulder at 1610
--- NOTE | 2024-06-28 16:21 | WPDANESPNB ---
Anes - Peripheral Nerve Block Date/Time: 06/28/24 16:21 I have discussed with the patient/family/POA the placement of a peripheral nerve block for post-operative pain management, including associated risks, benefits, complications, and side effects. Alternative methods of post-operative analgesia were detailed. Questions were solicited and answers provided to the satisfaction of the patient/family/POA. Time-Out: A pre-procedural Time-Out was completed immediately before starting the procedure and confirmed: Patient Identification, Site, Procedure, Patient Position and the Availability of Requisite Equipment. Clinical Indications: Acute post-operative pain management requested by the operative surgeon. Nerve Block Insertion Note Anes-nerve block: interscalene right Patient position: other (sitting) Skin prep: chlorhexidine Needle: 22 gauge, stimulating, insulated echogenic needle. Needle length: 50 mm Technique: nerve stimulation lost at (mA) (0.3) and ultrasound Technique comment: done in pacu Injectate: bupivacaine 0.5% with epi 5 mcg/ml (30ml no epi) Observations: tolerated well Complications: none Procedure start time:: 1608 Procedure end time:: 161
[2024-06-28] MEDS: oxyCODONE HCL (*CRX) 5 MG TAB IR PO (17:44)
== END | disposition home or self-care (01) ==
PROVIDERS: Anesthesiology; PCP Registered Nurse; Visit Provider Orthopaedic Surgery
PROC: (CPT 29805; principal; 2024-06-28 12:30)
DX: S46.011A Strain of muscle(s) and tendon(s) of the rotator cuff of right shoulder, initial encounter (principal); M75.41 Impingement syndrome of right shoulder; M75.21 Bicipital tendinitis, right shoulder; M75.81 Other shoulder lesions, right shoulder; G89.18 Other acute postprocedural pain; W01.0XXA Fall on same level from slipping, tripping and stumbling without subsequent striking against object, initial encounter; Z85.3 Personal history of malignant neoplasm of breast; E66.9 Obesity, unspecified; Z68.33 Body mass index [BMI] 33.0-33.9, adult
CPT/HCPCS: 29827; 29828; 29826; 64415; 36415; 80048; A4565; A9270; C1713; J0171; J1100; J1171; J1885; J2003; J2250; J2371; J2405; J2704; J3010; J7120